=== PATIENT | male | born 1960 | race Caucasian/White ===

== ENCOUNTER 2021-06-29 10:26 | Outpatient (CLI) | payer OTHER, SELFPAY ==
--- NOTE | 2021-06-29 11:30 | NEURO_ITS ---
Impression: # Complains of numbness of hands. # Evolving Carpal Tunnel Syndrome. # Severe bilateral ulnar neuropathy across the elbows, right more than left. # Abormal needle/EMG exam. Nerve Conduction Studies Anti Sensory Summary Table Stim Site NR Peak (ms) P-T Amp (?V) Site1 Site2 Delta-P (ms) Dist (cm) Axel (m/s) Left Median Anti Sensory (2-3nd Digit) Wrist 3.8 31.4 Wrist 2-3nd Digit 3.8 14.0 37 Wrist 4.1 16.7 Wrist 2-3nd Digit 3.8 14.0 37 Right Median Anti Sensory (2-3nd Digit) Wrist 3.7 11.5 Wrist 2-3nd Digit 3.7 14.0 38 Wrist 3.7 11.1 Wrist 2-3nd Digit 3.7 14.0 38 Left Radial Anti Sensory (Base 1st Digit) Wrist 2.2 22.9 Wrist Base 1st Digit 2.2 0.0 Right Radial Anti Sensory (Base 1st Digit) Wrist 3.0 7.6 Wrist Base 1st Digit 3.0 0.0 Left Ulnar Anti Sensory (5th Digit) Wrist 2.8 7.6 Wrist 5th Digit 2.8 14.0 50 Right Ulnar Anti Sensory (5th Digit) Wrist 2.8 12.8 Wrist 5th Digit 2.8 14.0 50 Motor Summary Table Stim Site NR Onset (ms) O-P Amp (mV) Site1 Site2 Delta-0 (ms) Dist (cm) Axel (m/s) Left Median Motor (Abd Poll Brev) Wrist 3.7 6.5 Elbow Wrist 5.3 31.0 58 Elbow 9.0 5.0 Right Median Motor (Abd Poll Brev) Wrist 4.1 4.6 Elbow Wrist 6.1 29.0 48 Elbow 10.2 2.2 Left Ulnar Motor (Abd Dig Minimi) Wrist 2.7 6.0 A Elbow Wrist 6.1 30.0 49 A Elbow 8.8 4.8 B Elbow Wrist 3.9 21.0 54 B Elbow 6.6 4.4 Right Ulnar Motor (Abd Dig Minimi) Wrist 2.8 4.0 A Elbow Wrist 8.4 30.0 36 A Elbow 11.2 3.4 B Elbow Wrist 5.2 20.0 38 B Elbow 8.0 2.4 F Wave Studies NR F-Lat (ms) L-R F-Lat (ms) Left Median (Mrkrs) (Abd Poll Brev) 30.86 0.00 Right Median (Mrkrs) (Abd Poll Brev) 30.86 0.00 Left Ulnar (Mrkrs) (Abd Dig Min) 30.47 1.64 Right Ulnar (Mrkrs) (Abd Dig Min) 32.10 1.64 EMG Side Muscle Nerve Root Ins Act Fibs Amp Dur Recrt Comment Right 1stDorInt Ulnar C8-T1 Nml Nml Nml >12ms Reduced Right Ext Indicis Radial (Post Int) C7-8 Nml Nml Nml Nml Nml Right Ext Digitorum Radial (Post Int) C7-8 Nml Nml Nml Nml Nml Right BrachioRad Radial C5-6 Nml Nml Nml Nml Nml Right PronatorTeres Median C6-7 Nml Nml Nml Nml Nml Right Abd Poll Brev Median C8-T1 Nml Nml Nml Nml Nml Left 1stDorInt Ulnar C8-T1 Nml Nml Nml >12ms Reduced Left Ext Indicis Radial (Post Int) C7-8 Nml Nml Nml Nml Nml Left Ext Digitorum Radial (Post Int) C7-8 Nml Nml Nml Nml Nml Left BrachioRad Radial C5-6 Nml Nml Nml Nml Nml Left PronatorTeres Median C6-7 Nml Nml Nml Nml Nml Left Abd Poll Brev Median C8-T1 Nml Nml Nml Nml Nml Right ABD Dig Min Ulnar C8-T1 Nml Nml Nml >12ms Reduced Right Abd Poll Long Radial (Post Int) C7-8 Nml Nml Nml Nml Nml Left ABD Dig Min Ulnar C8-T1 Nml Nml Nml >12ms Reduced Left Abd Poll Long Radial (Post Int) C7-8 Nml Nml Nml Nml Nml MTDD
== END 2021-06-29 10:27 | disposition home or self-care (01) ==
PROVIDERS: Visit Provider Family Medicine
DX: G56.03 Carpal tunnel syndrome, bilateral upper limbs (principal); G56.23 Lesion of ulnar nerve, bilateral upper limbs; R94.131 Abnormal electromyogram [EMG]
CPT/HCPCS: 95886; 95911

== ENCOUNTER 2021-08-02 10:03 | Outpatient (CLI) | payer OTHER, SELFPAY ==
--- NOTE | ~2021-08-02 | XR_ITS ---
XR_CERV2-3V_CR DATE: 08/02/2021 10:22 INDICATION: Fall 3 days ago. Posterior and bilateral neck pain. TECHNIQUE: AP, open-mouth, lateral, swimmer views COMPARISON: None FINDINGS: C1 and C2 are normally aligned and the odontoid process is intact. No fracture or dislocation or locked facet or prevertebral soft tissue swelling. There is mildly severe degenerative disc disease and minimal retrolisthesis at C2-3. Moderately severe degenerative disc disease at C5-6 and C6-7. There is uncovertebral joint spurring, best demonstrated on the left at C3-4, on the right at C5-6. Stratus post sternotomy. IMPRESSION: Cervical spondylosis Reviewed, dictated and finalized at [facility]. Reviewed, dictated and finalized at [facility]. IMPRESSION: Cervical spondylosis
== END 2021-08-02 10:04 | disposition home or self-care (01) ==
LOC: ANHIMG 10:06
PROVIDERS: PCP Family Medicine; Visit Provider Nurse Practitioner Family
DX: M54.2 Cervicalgia (principal); M54.12 Radiculopathy, cervical region; M43.02 Spondylolysis, cervical region
CPT/HCPCS: 72040

== ENCOUNTER 2021-08-22 17:20 | Emergency (ER) | payer OTHER, SELFPAY ==
[2021-08-22 17:30] VITALS: BP 173/65; PULSE 78; RESP 16; TEMP 36.4; O2SAT 100
--- NOTE | 2021-08-22 17:45 | ED.GENADULT ---
HPI - General Adult General Chief complaint: Unspecified Stated complaint: HBP Time Seen by Provider: 08/22/21 17:45 Source: patient, RN notes reviewed and old records reviewed Mode of arrival: ambulatory Limitations: no limitations History of Present Illness HPI narrative: 61-year-old male presents to the [facility] with concerns over elevated blood pressure. Patient thinks that he missed a dose of his blood pressure medication this morning. Wanted his blood pressure rechecked. Had felt funny all day. Patient reports that he is feeling much better just sitting here. Had called Dr. Patel's office was told to come to the [facility] for an evaluation. Patient denies any chest pain, blurry vision or headaches currently Related Data Home Medications Medication Instructions Recorded Confirmed lisinopril 20 mg tablet 20 mg PO DAILY 05/23/21 08/22/21 metformin 1,000 mg tablet 1,000 mg PO BID 05/23/21 08/22/21 metoprolol succinate 100 mg 100 mg PO DAILY 05/23/21 08/22/21 tablet,extended release 24 hr Allergies Allergy/AdvReac Type Severity Reaction Status Date / Time acetaminophen [From [place]] AdvReac Mild hallucinati Verified 08/22/21 17:41 ons hydrocodone [From [place]] AdvReac Mild hallucinati Verified 08/22/21 17:41 ons Review of Systems Review of Systems: All systems reviewed & are unremarkable except as noted in HPI and below Constitutional: Constitutional: Reports no additional constitutional complaints, Denies chills and Denies fever(s) Eyes: Eyes: Reports no additional eye complaints ENT: Reports system reviewed and no additional complaints, except as documented Cardiovascular: Cardiovascular: Reports no additional cardiovascular complaints and Denies chest pain Respiratory: Respiratory: Reports no additional respiratory complaints, Denies cough and Denies dyspnea Gastrointestinal: Gastrointestinal: Reports no additional gastrointestinal complaints, Denies abdominal pain, Denies nausea and Denies vomiting Musculoskeletal: Musculoskeletal: Reports no additional musculoskeletal complaints Integumentary/Breasts: Skin/Breast: Reports system reviewed and no additional complaints, except as docu Neurologic: Reports system reviewed and no additional complaints, except as documented Psychiatric: Psychiatric: Reports no additional psychiatric complaints Allergic/Immunologic: Allergic/Immunologic: Reports no additional allergic/immunologic complaints PMFSH Past Medical History Medical History CAD (coronary artery disease) Diabetes mellitus Hyperlipidemia Hypertension with heart disease [place] (myocardial infarction) Surgical History Surgical History History of coronary artery stent placement S/P CABG (coronary artery bypass graft) Family History Family History Father Heart disease Hypertension Sibling Diabetes mellitus Social History Social History Smoking packs per day: 3 Smoking cigarettes per day: 60.0 Years smoked: 30 Smoking pack-years: 90.00 Smoking status: Former smoker Tobacco type: cigarettes Second hand tobacco smoke exposure: No Smoking end date: 04/08/99 Alcohol intake: never Substance use: current Substance use type: marijuana Gender identity (if verbalized by the patient): Male Sexual Orientation (if Verbalized by the Patient): Straight or Heterosexual Comments At the time of my signature, I reviewed and agree with the nursing past medical, surgical, social, and family history. There is no relevant family history pertinent to the patient complaint. Exam Const: General: healthy appearing, no acute distress and alert Nutritional Appearance: well nourished Orientation/consciousness: patient oriented x3 Limitations: no limita
[2021-08-22 18:05] VITALS: BP 160/84
== END 2021-08-22 18:10 | disposition home or self-care (01) ==
PROVIDERS: Emergency Provider Nurse Practitioner; PCP Family Medicine
DX: I10 Essential (primary) hypertension (principal); Z87.891 Personal history of nicotine dependence; I25.10 Atherosclerotic heart disease of native coronary artery without angina pectoris; E11.9 Type 2 diabetes mellitus without complications; E78.5 Hyperlipidemia, unspecified; I25.2 Old myocardial infarction; Z95.5 Presence of coronary angioplasty implant and graft; Z95.1 Presence of aortocoronary bypass graft
CPT/HCPCS: 99211; G0463

== ENCOUNTER 2021-09-24 02:24 | Emergency (ER) | payer OTHER, SELFPAY ==
[2021-09-24 02:27] VITALS: BP 150/74; PULSE 93; RESP 14; TEMP 36.8; O2SAT 100
--- NOTE | 2021-09-24 02:37 | ECG_ITS ---
Measurements Intervals [place] Rate: 87 P: 90 NM: 178 QRS: -26 QRSD: 149 T: 104 QT: 370 QTc: 447 Interpretive Statements SINUS RHYTHM LEFT BUNDLE BRANCH BLOCK [120+ ms QRS DURATION, 80+ ms Q/S IN V1/V2, 85+ ms R IN I/aVL/V5/V6] ABNORMAL ECG NO PREVIOUS ECG AVAILABLE FOR COMPARISON Electronically Signed On 09-24-2021 9:26:23 CDT by Dennis Welch M.D.
--- NOTE | 2021-09-24 02:40 | ED.GENADULT ---
HPI - General Adult General Chief complaint: Recheck/Abnormal Lab/Rx Stated complaint: high blood pressure Time Seen by Provider: 09/24/21 02:29 History of Present Illness HPI narrative: 61-year-old male presents emergency room secondary to high blood pressure. Got underlying history of hypertension has been take his medication as prescribed. Also has underlying history of coronary artery disease having undergone a stent in the past and then bypass surgery. 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 His heart rate was in the 90s blood pressures were right 170 over 70s. He states this is high for him and then he got concerned and thought he should just come to the emergency room to be checked out. Denies any chest pain or shortness of breath. He has no other symptoms at this time. Related Data Home Medications Medication Instructions Recorded Confirmed lisinopril 20 mg tablet 20 mg PO DAILY 05/23/21 08/22/21 Allergies Allergy/AdvReac Type Severity Reaction Status Date / Time acetaminophen [From [place]] AdvReac Mild hallucinati Verified 09/24/21 02:38 ons hydrocodone [From [place]] AdvReac Mild hallucinati Verified 09/24/21 02:38 ons Review of Systems Review of Systems: CONSTITUTIONAL: Denies fever, chills, or sweats. EYES: Denies visual changes, redness, or discharge. ENT: Denies rhinorrhea, congestion, sore throat, or otalgia. CARDIOVASCULAR: Denies chest pain, palpitations, or edema. RESPIRATORY: Denies cough or dyspnea. GASTROINTESTINAL: Denies abdominal pain, nausea, vomiting, or diarrhea. GENITOURINARY: Denies dysuria or hematuria. SKIN: Denies rash or itching. MUSCULOSKELETAL: Denies back pain, joint pain, or myalgia. NEUROLOGIC: Denies headache, numbness, or weakness. PSYCHIATRIC: Denies anxiety or depression. [facility] Past Medical History Medical History CAD (coronary artery disease) Diabetes mellitus Hyperlipidemia Hypertension with heart disease [place] (myocardial infarction) Surgical History Surgical History History of coronary artery stent placement S/P CABG (coronary artery bypass graft) Family History Family History Father Heart disease Hypertension Sibling Diabetes mellitus Social History Social History Smoking packs per day: 3 Smoking cigarettes per day: 60.0 Years smoked: 30 Smoking pack-years: 90.00 Smoking status: Former smoker Tobacco type: cigarettes Second hand tobacco smoke exposure: No Smoking end date: 04/08/99 Alcohol intake: never Substance use: current Substance use type: marijuana Gender identity (if verbalized by the patient): Male Sexual Orientation (if Verbalized by the Patient): Straight or Heterosexual Exam Narrative: APPEARANCE: Well appearing, no pain or distress, well-nourished. Head normocephalic and atraumatic. EYES: PERRLA/EOMI, conjunctivae very clear. NOSE: Normal with no drainage EARS:TMS clear Jeferson Jason, with good light reflex. THROAT: Pharynx clear, no exudate. NECK: Supple. No adenopathy, no masses. RESPIRATORY: Airway patent, respirations nonlabored. Clear to auscultation bilaterally, no rales, rhonchi, wheezing. CARDIOVASCULAR: Regular rate and rhythm without murmurs, rubs, or gallops. ABDOMINAL: Soft, nontender, nondistended, no hepatosplenomegaly Musculoskeletal: Moves all extremities. Strength/ROM intact, No edema, No calf tenderness. NEURO: Alert. Cranial nerves II through XII intact. Normal gait. Good coordination. Nonfocal examination. SKIN:: Warm, dry. Normal Color PSYCHIATRIC: Normal affect/mood, normal interaction Course Vital Signs Vital signs: Vital Signs Temper
[2021-09-24 02:49] VITALS: BP 138/71; PULSE 90; RESP 12; O2SAT 100
== END 2021-09-24 02:50 | disposition home or self-care (01) ==
LOC: ANHED 02:42
PROVIDERS: Emergency Provider Emergency Medicine; PCP Family Medicine
DX: I11.9 Hypertensive heart disease without heart failure (principal); I25.10 Atherosclerotic heart disease of native coronary artery without angina pectoris; E11.9 Type 2 diabetes mellitus without complications; E78.5 Hyperlipidemia, unspecified; I25.2 Old myocardial infarction; Z95.1 Presence of aortocoronary bypass graft; Z95.5 Presence of coronary angioplasty implant and graft; Z87.891 Personal history of nicotine dependence; Z79.84 Long term (current) use of oral hypoglycemic drugs
CPT/HCPCS: 93005; 99283

== ENCOUNTER 2021-11-09 13:32 | Outpatient (CLI) | payer OTHER, SELFPAY ==
[2021-11-09 14:57] LABS: Anion Gap 12 mmol/L (8-16); Blood Urea Nitrogen 13 mg/dL (9-20); Calcium 9.5 mg/dL (8.4-10.2); Carbon Dioxide 24 mmol/L (22-30); Chloride 100 mmol/L (98-107); Estimated Glomerular Filt Rate > 60; Glucose 121 mg/dL (65-110); Potassium 4.1 mmol/L (3.4-5.0); Sodium 136 mmol/L (137-145)
== END 2021-11-09 13:33 | disposition home or self-care (01) ==
LOC: ANHLAB 13:34
PROVIDERS: PCP Family Medicine; Visit Provider Anesthesiology
DX: E11.9 Type 2 diabetes mellitus without complications (principal)
CPT/HCPCS: 36415; 80048

== ENCOUNTER 2021-11-14 05:54 | Day surgery (SDC) | payer OTHER, SELFPAY ==
[2021-10-25 08:29] VITALS: BMI 28.8
--- NOTE | 2021-11-13 12:44 | WPDANESEPPF ---
Anes - Initial Pre Proc Eval Procedure: Operation Date: 11/14/21 07:30 Proposed Procedures p Right Open Carpal Tunnel Release - Jose Enrique Mcmahon MD s Right Ulnar Nerve Neuroplasty - Jose Enrique Mcmahon MD s Left Lateral Epicondyle Injection - Jose Enrique Mcmahon MD Date/Time: 11/13/21 12:44 Surgeon: Jose Enrique Mcmahon MD Pre Op Diagnosis: Right Cubital & Carpal Tunnel Syndrome, Left [place] Patient Data Age: 61 Gender: M Height: 1.73 m Weight: 86 kg Allergies Allergy/AdvReac Type Severity Reaction Status Date / Time acetaminophen [From [place]] AdvReac Mild hallucinati Verified 11/14/21 06:21 ons hydrocodone [From [place]] AdvReac Mild hallucinati Verified 11/14/21 06:21 ons Home Medications Medication Instructions Recorded Confirmed Type empagliflozin 25 mg tablet 25 mg PO DAILY #90 tabs 05/23/21 11/14/21 Rx (Jardiance) lisinopril 20 mg tablet 20 mg PO DAILY 05/23/21 11/14/21 History atorvastatin 80 mg tablet 80 mg PO QHS #90 tabs 08/14/21 11/14/21 Rx clopidogrel 75 mg tablet 75 mg PO DAILY #90 tabs 08/14/21 11/14/21 Rx metformin 1,000 mg tablet 1,000 mg PO BID #180 tabs 08/29/21 11/14/21 Rx flash glucose scanning reader #1 ea 09/05/21 Rx (FreeStyle Miguelina 14 Day [place]) flash glucose sensor (FreeStyle #1 ea 09/05/21 Rx Miguelina 14 Day Sensor kit) metoprolol succinate 100 mg 100 mg PO DAILY #90 tabs 09/19/21 11/14/21 Rx tablet,extended release 24 hr insulin detemir U-100 100 unit/mL 10 unit (0.1 mL) subcut QHS #15 mL 10/03/21 10/25/21 Rx (3 mL) subcutaneous pen (Levemir FlexTouch U-100 Insulin) insulin lispro 100 unit/mL 1 sliding scale dose subcut 10/03/21 10/25/21 Rx subcutaneous pen (Humalog KwikPen USEASDIRECTD #15 mL (U-100) Insulin) sertraline 50 mg tablet 50 mg PO DAILY #90 tabs 10/03/21 11/14/21 Rx gabapentin 100 mg capsule 200 mg PO BID #360 caps 11/03/21 11/14/21 Rx Patient hx anesthesia problems: none Family hx anesthesia problems: none Results Review: All pre-operative results and documents have been reviewed as part of the pre-operative evaluation. [facility] Past Medical History Medical History CAD (coronary artery disease) Diabetes mellitus Hyperlipidemia Hypertension with heart disease [place] (myocardial infarction) Surgical History Surgical History History of coronary artery stent placement S/P CABG (coronary artery bypass graft) Family History Family History Father Heart disease Hypertension Sibling Diabetes mellitus Social History Social History Smoking packs per day: 3 Smoking cigarettes per day: 60.0 Years smoked: 30 Smoking pack-years: 90.00 Smoking status: Never smoker Tobacco type: cigarettes Second hand tobacco smoke exposure: No Smoking end date: 04/08/99 Additional smoking assessment comments: quit 20 years Alcohol intake: never Alcohol use details: very rare Substance use: current Substance use type: marijuana Other substance usage details: daily - some smoking / some edibles Living arrangements: alone Gender identity (if verbalized by the patient): Male Sexual Orientation (if Verbalized by the Patient): Straight or Heterosexual Spiritual care concerns: No Anes - Eval Final PreProcedure Day of Procedure 11/13/21 12:44 Patient weight: overweight Heart: regular rate and rhythm Lungs: clear to auscultation Airway: Mallampati scale class II Neurological: alert and oriented Last oral intake: >/= 8 hours ASA classification: III Emergent: no Anesthetic plan: proceed Anesthesia type and monitoring: general GIVS and standard monitoring Results Review: All pre-operative results and documents have been reviewed as part of the pre-operative evaluation. Informed Co
[2021-11-14 06:15] VITALS: BP 142/73; PULSE 66; RESP 14; TEMP 36.5; O2SAT 99
[2021-11-14 06:25] VITALS: BMI 27.6
[2021-11-14] MEDS: LACTATED RINGERS 1,000 ML 30 ML IV CONT ×2 (06:40→08:22)
[2021-11-14 06:54] LABS: Glucose Point of Care 148 mg/dl (65-105)
--- NOTE | 2021-11-14 07:18 | WPDHPUPDATE1 ---
History and Physical Update Update Date/Time: 11/14/21 07:18 History and Physical has been reviewed, including an updated exam of the patient. There are NO changes in the patient's condition. Risks, benefits, and alternatives have been discussed and questions answered. Patient agrees to proceed with procedure.
[2021-11-14] MEDS: LIDO 1%/EPINEPHRINE 1:100,000 20 ML VIAL 13 ML INFILTRATE (08:03)
[2021-11-14 08:22] VITALS: BP 101/75; PULSE 65; RESP 16; TEMP 36.8; O2SAT 96
[2021-11-14] MEDS: DEXAMETHASONE SOD PHOS INJ 4 MG/ML VIAL 2 MG IV PUSH (08:30)
--- NOTE | 2021-11-14 08:39 | P.OP_ITS ---
Procedure Note - Detailed Date of Procedure 11/14/21 Pre-op Diagnosis Right Cubital & Carpal Tunnel Syndrome, Left [place] Post-op Diagnosis Same Procedure Performed Right open carpal tunnel release. Right ulnar neuroplasty at the elbow. Injection left lateral epicondyle. Surgeon Jose Enrique Mcmahon MD Traffic Workforce Representative [facility] Description of Procedure the right carpal tunnel the right cubital tunnel and the left lateral epicondyle were marked on the patient his consent in the holding area. He was rolled to the operating room where he was placed supine on the operating table. The patient was given IV sedation. The right upper extremity was prepped and draped in usual fashion. A time-out was held and confirmed. The right upper extremity was exsanguinated with an Esmarch bandage and the tourniquet inflated to 250 mmHg. The surgery was begun with an incision in the palm which was carried bluntly through the subcutaneous tissue to the palmar aponeurosis. This and the transverse retinaculum were incised with a 15. Blade opening the canal. Under 3 point retraction the ligament was divided distally and proximally to completely release it. There was no unusual anatomy noted. The skin was closed with interrupted 4-0 nylon suture. The elbow was flexed and supported on folded towels. The incision was made as marked and dissection was carried with scissors through the subcutaneous tissue to the interspace between the medial epicondyle and the olecranon. The ulnar nerve was easily identified in this location there was minimal adjacent muscle. The fascia was opened and divided Proximally mobilizing the nerve in that direction and allowing a single digit to slide alongside the nerve. The intermuscular septum did not appear to be an issue. More distally Flores's ligament was incised and the flexor muscle fascia also opened. The digit could easily be slid alongside the nerve in that position there did not appear to be distal compression. The nerve did not sublux. The skin was closed with intradermal 3-0 Monocryl at several sites and the skin closed with glue. Bulky flexible bandages were applied at both sites the tourniquet was released and the patient was discharged from the operating room stable condition. He is being discharged home with a prescription for oxycodone 5325 7. . Estimated Blood Loss 5 Drains No Packing No Pathology None sent Complications No immediate complications Condition Stable Disposition Same day
[2021-11-14 08:46] VITALS: BP 126/67; PULSE 60; RESP 16; O2SAT 97
--- NOTE | 2021-11-14 09:05 | WPDANESPN ---
Anes - Prog Note Post-Op Date/Time: 11/14/21 09:05 Cardiovascular status: normal Respiratory status: normal Airway patency: baseline Mental status: baseline Post-Op hydration status: normal Vital Signs: Last Vital Signs Temp 36.8 C 11/14/21 08:22 Pulse 60 11/14/21 08:46 Resp 16 11/14/21 08:46 BP 126/67 11/14/21 08:46 Pulse Ox 97 11/14/21 08:46 O2 Del Method Room Air 11/14/21 08:46 Pain Score (VAS): 0 11/14/21 06:51 POC Capillary Glucose 148 H Post-procedural complaints: none Patient Feedback: Patient satisfied with anesthetic care. Other Findings: Patient vital signs back to baseline. Patient denies nausea and vomiting. Patient's pain under control. Patient OK for discharge.
== END 2021-11-14 09:04 | disposition home or self-care (01) ==
PROVIDERS: PCP Family Medicine; Visit Provider Plastic Surgery
PROC: (CPT 64721; principal; 2021-11-14 07:30)
PROC: (CPT 64721; 2021-11-14 07:30)
PROC: (CPT 64721; 2021-11-14 07:30)
DX: G56.01 Carpal tunnel syndrome, right upper limb (principal); G56.21 Lesion of ulnar nerve, right upper limb
CPT/HCPCS: 64721; 64718

== ENCOUNTER 2021-11-25 20:10 | Emergency (ER) | payer OTHER, SELFPAY ==
[2021-11-25 20:15] VITALS: BP 158/69; PULSE 98; RESP 16; TEMP 36.4; O2SAT 98
[2021-11-25 20:22] LABS: Glucose Point of Care 118 mg/dl (65-105)
--- NOTE | 2021-11-25 20:56 | ED.GENADULT ---
HPI - General Adult General Chief complaint: Unspecified Stated complaint: TOOK HUMALOG INSTEAD OF LEVEMIR Time Seen by Provider: 11/25/21 20:28 Source: patient and RN notes reviewed Mode of arrival: ambulatory Limitations: no limitations History of Present Illness HPI narrative: This is a 61 year old male with history of diabetes mellitus who presents for evaluation of accidental dosing of humalog. Patient states he was trying to give himself 12 units of Levemir but he accidentally gave himself 11 units of humalog before he realized his mistake. His blood sugar was 150 before he gave himself insulin. After taking humalog his blood sugar was 89, so he drank orange juice and ate some peanut butter. His blood sugar on arrival was 118. He states he otherwise feels fine. Related Data Home Medications Medication Instructions Recorded Confirmed lisinopril 20 mg tablet 20 mg PO DAILY 05/23/21 11/14/21 Allergies Allergy/AdvReac Type Severity Reaction Status Date / Time acetaminophen [From [place]] AdvReac Mild hallucinati Verified 11/25/21 20:13 ons hydrocodone [From [place]] AdvReac Mild hallucinati Verified 11/25/21 20:13 ons Review of Systems Review of Systems: All systems reviewed & are unremarkable except as noted in HPI and below Constitutional: Constitutional: Denies chills and Denies fever(s) Cardiovascular: Cardiovascular: Denies chest pain and Denies orthopnea Respiratory: Respiratory: Denies cough and Denies hemoptysis Gastrointestinal: Gastrointestinal: Denies abdominal pain, Denies nausea and Denies vomiting PMFSH Past Medical History Medical History CAD (coronary artery disease) Diabetes mellitus Hyperlipidemia Hypertension with heart disease [place] (myocardial infarction) Surgical History Surgical History History of coronary artery stent placement S/P CABG (coronary artery bypass graft) Family History Family History Father Heart disease Hypertension Sibling Diabetes mellitus Social History Social History Smoking packs per day: 3 Smoking cigarettes per day: 60.0 Years smoked: 30 Smoking pack-years: 90.00 Smoking status: Never smoker Tobacco type: cigarettes Second hand tobacco smoke exposure: No Smoking end date: 04/08/99 Additional smoking assessment comments: quit 20 years Alcohol intake: never Alcohol use details: very rare Substance use: current Substance use type: marijuana Other substance usage details: daily - some smoking / some edibles Gender identity (if verbalized by the patient): Male Sexual Orientation (if Verbalized by the Patient): Straight or Heterosexual Spiritual care concerns: No Exam Narrative: GENERAL: Well-appearing, well-nourished, and in no acute distress. HEAD: Normocephalic, atraumatic EYES: EOMI, conjunctiva clear without discharge THROAT:Mucous membranes moist, NECK: Supple, without lymphadenopathy or mass RESPIRATORY: No respiratory distress, Airway patent, Respirations non-labored, Clear to auscultation without rales, rhonchi or wheeze HEART: Regular rate and rhythm. No murmur heard. Normal peripheral pulses. ABDOMEN: Soft, nontender, nondistended, normal active bowel sounds. No masses. No rebound or guarding, No organomegaly. EXTREMITIES: No edema, normal strength with full range of motion. SKIN: Warm, dry, normal color without rash NEURO: Alert and oriented x3. CN 2-12 grossly intact. No focal deficits. PSYCH: Normal mood and affect. Course Reevaluation(s) Reevaluation #1: PAtient's blood sugar has been going up. He is stable for discharge as insulin taken 4 hours ago. Peak effect has passed. I have discussed with patient. Date: 11/25/21 Time: 22:53 Vital Si
[2021-11-25 21:36] LABS: Glucose Point of Care 136 mg/dl (65-105)
[2021-11-25 21:49] VITALS: BP 131/59; PULSE 64; RESP 17; O2SAT 97
--- NOTE | 2021-11-25 22:52 | PC.NURSE ---
Patients bedside glucose is 144. ERP notified.
[2021-11-25 22:53] LABS: Glucose Point of Care 144 mg/dl (65-105)
[2021-11-25 22:56] VITALS: BP 119/56; PULSE 66; RESP 17; O2SAT 99
== END 2021-11-25 23:09 | disposition home or self-care (01) ==
PROVIDERS: Emergency Provider General Practice; PCP Family Medicine
DX: T38.3X1A Poisoning by insulin and oral hypoglycemic [antidiabetic] drugs, accidental (unintentional), initial encounter (principal); E11.9 Type 2 diabetes mellitus without complications; I25.10 Atherosclerotic heart disease of native coronary artery without angina pectoris; E78.5 Hyperlipidemia, unspecified; I11.9 Hypertensive heart disease without heart failure; I25.2 Old myocardial infarction; Z95.5 Presence of coronary angioplasty implant and graft; Z95.1 Presence of aortocoronary bypass graft; Z87.891 Personal history of nicotine dependence; Z79.02 Long term (current) use of antithrombotics/antiplatelets; Z79.84 Long term (current) use of oral hypoglycemic drugs; Z79.891 Long term (current) use of opiate analgesic
CPT/HCPCS: 82948; 99282

== ENCOUNTER → 2023-02-20 07:21 | Outpatient (CLI) | payer BC, SELFPAY ==
--- NOTE | ~2023-02-20 | XR_ITS ---
Left Knee Technique: AP, lateral, and sunrise views were obtained. Clinical History: Pain Findings: No fracture or dislocation is seen. Bipartite patella noted. Osseous alignment is anatomic. There is minimal spurring at the intercondylar notch and from the patella. Soft tissues are unremark able. No joint effusion is seen. Impression: Minimal degenerative spurring, as above. Bipartite patella. Reviewed, dictated and finalized at location M. 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 Bipartite patella.
--- NOTE | ~2023-02-20 | XR_ITS ---
Right Knee Technique: AP, lateral, and sunrise views were obtained. Clinical History: Pain Findings: No fracture or dislocation is seen. There is advanced degenerative change of the patellofem oral compartment with patellofemoral compartment narrowing. There is moderate spurring at the lateral joint line. Soft tissues are unremarkable. No joint effusion is seen. Impression: Advanced patellofemoral compartment degenerative change. Moderate lateral compartment degenerative change. Reviewed, dictated and finalized at location . 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 Moderate lateral compartment degenerative change.
== END ==
PROVIDERS: PCP Physician Assistant; Visit Provider Physician Assistant
DX: M25.561 Pain in right knee (principal); M25.562 Pain in left knee; Q74.1 Congenital malformation of knee; R93.6 Abnormal findings on diagnostic imaging of limbs
CPT/HCPCS: 73564

== ENCOUNTER 2023-03-03 00:41 | Emergency (ER) | payer BC, SELFPAY ==
--- NOTE | ~2023-03-03 | XR_ITS ---
EXAMINATION: XR chest 2V DATE: 03/03/2023 01:53 INDICATION: Chest tightness and nausea TECHNIQUE: PA and lateral views of the chest are obtained. COMPARISON: None available FINDINGS: The lungs are free of acute opacities. No pleural effusion or pneumothorax. The heart size is normal. Median sternotomy wires and mediastinal surgical clips are seen, likely from prior coronar y artery bypass grafting. There is moderate thoracic spondylosis. IMPRESSION: 1. No acute cardiopulmonary abnormality. Reviewed, dictated and finalized at location F. OYMENT LEGAL ASSISTANT
--- NOTE | 2023-03-03 00:43 | ECG_ITS ---
Measurements Intervals [place] Rate: 82 P: -21 NC: 140 QRS: -43 QRSD: 150 T: 111 QT: 369 QTc: 433 Interpretive Statements SINUS RHYTHM LEFT AXIS DEVIATION LEFT BUNDLE BRANCH BLOCK ABNORMAL ECG COMPARED TO ECG 09/24/2021 02:35:43 LEFT-AXIS DEVIATION NOW PRESENT Electronically Signed On 03-03-2023 9:18:48 JOB FOREMAN by Drake Chavis D.O.
[2023-03-03 01:01] VITALS: BP 170/77; PULSE 85; RESP 16; TEMP 36.4; O2SAT 100
[2023-03-03 01:24] LABS: Basophils Absolute Auto 0.1 K/mm3 (0.0-0.1); Basophils Percent Auto 0.8 % (0.2-1.2); Eosinophils Absolute Auto 0.1 K/mm3 (0-0.3); Eosinophils Percent Auto 1.8 % (0-4.4); Hematocrit 41.5 % (42.0-52.0); Hemoglobin 12.7 g/dL (14.0-18.0); Immature Granulocyte Absolute 0.02 K/mm3 (0.00-0.031); Immature Granulocyte Percent A 0.3 % (0-0.5); Lymphocytes Absolute Auto 1.92 K/mm3 (0.9-3.2); Lymphocytes Percent Auto 26.5 % (18.3-44.2); Mean Corpuscular HGB Conc 30.6 g/dl (32-36); Mean Corpuscular Hemoglobin 25.2 pg (26-34); Mean Corpuscular Volume 82.3 fl (80-100); Mean Platelet Volume 10.9 fl (7.4-10.4); Monocytes Absolute Auto 0.8 K/mm3 (0.1-0.6); Monocytes Percent Auto 10.9 % (2.6-8.5); Neutrophils Absolute Auto 4.3 K/mm3 (1.3-6.7); Neutrophils Percent Auto 59.7 % (45.5-73.1); Platelet Count Result 244 k/mm3 (150-375); Red Blood Count 5.04 M/mm3 (4.6-6.20); Red Cell Distribution Width 13.5 % (11.5-14.5); White Blood Count 7.2 K/mm3 (4.5-10.0)
[2023-03-03 01:27] LABS: Alanine Aminotransferase 45 U/L (6-50); Albumin Level 4.4 g/dL (3.5-5.1); Alkaline Phosphatase 92 U/L (38-126); Anion Gap 12 mmol/L (8-16); Aspartate Amino Transferase 47 U/L (17-59); Bilirubin,Total 0.5 mg/dL (0.2-1.3); Blood Urea Nitrogen 16 mg/dL (9-20); Calcium 9.3 mg/dL (8.4-10.2); Carbon Dioxide 22 mmol/L (22-30); Chloride 101 mmol/L (98-107); Estimated CRCL calculation 75 ml/min; Estimated Glomerular Filt Rate > 60; Glucose 119 mg/dL (65-110); Lipase 103 U/L (23-300); Potassium 3.9 mmol/L (3.4-5.0); Sodium 135 mmol/L (137-145)
[2023-03-03 01:28] LABS: INR 1.1; Prothrombin Time 14.1 Seconds (11.1-14.7)
[2023-03-03 01:38] LABS: Troponin I < 0.012 ng/mL (0.000-0.034)
--- NOTE | 2023-03-03 05:34 | PC.NURSE ---
Pt approached triage desk and states he has to go to work. Pt educated on risks of leaving before seeing provider, verbalized understanding. Pt ambulated out of ED with steady gait.
== END 2023-03-03 06:34 | disposition left against medical advice (07) ==
LOC: ANHED 05:38
PROVIDERS: Emergency Provider Emergency Medicine; PCP Physician Assistant
DX: R07.89 Other chest pain (principal)
CPT/HCPCS: 36415; 71046; 80053; 83690; 84484; 85025; 85610; 85730; 93005; 99199

== ENCOUNTER 2023-03-14 17:07 | Outpatient (CLI) | payer BC, SELFPAY ==
[2023-03-14 18:28] LABS: Influenza A QL RT-PCR Negative (Negative); Influenza B QL RT-PCR Negative (Negative); RSV RNA, RT-PCR Positive (Negative); SARS-CoV-2 RNA PCR Negative (Negative)
== END 2023-03-14 17:08 | disposition home or self-care (01) ==
LOC: ANHLAB 17:09
PROVIDERS: PCP Family Medicine; Visit Provider Physician Assistant
DX: R05.9 Cough, unspecified (principal); R50.9 Fever, unspecified
CPT/HCPCS: 87637

== ENCOUNTER → 2023-04-26 06:53 | Outpatient (CLI) | payer BC, SELFPAY ==
--- NOTE | ~2023-04-26 | XR_ITS ---
EXAMINATION: XR wrist LT min 3V DATE: 04/26/2023 07:13 INDICATION: Left wrist pain post fall onto outstretched hand TECHNIQUE: Posteroanterior, ulnar deviation, oblique, and lateral views of the left wrist were obtain ed. COMPARISON: none FINDINGS: The trapezium appears small but without evident fracture this likely reflects remodeling and osteolys is related to severe osteoarthritis at the first carpometacarpal articulation. Less severe remodeling and loss of bone stock at the palmar/ulnar base of the first metacarpal. Alignment is otherwise norm al. No acute fracture identified. Additional moderate osteoarthritis at the lunocapitate articulation of the midcarpal joint which is an atypical distribution and could be seen in the setting of early s capholunate advanced collapse (SLAC) wrist related to scapholunate ligament insufficiency. There is s ome cystic change along the ulnar margin of the scaphoid which could also be secondary to scapholunat e ligament injury. Mild osteoarthritis at the distal radioulnar and triscaphe joints. IMPRESSION: 1. No acute osseous abnormality. 2. Advanced osteoarthritis at the first carpometacarpal joint. 3. Atypical moderate osteoarthritis at the lunocapitate articulation and some cystic change at the ul barbra side of the proximal pole of the scaphoid, both findings suggesting sequela of a chronic scapholu nino ligament injury. Reviewed, dictated and finalized at location A. ANIC AND WELDER IMPRESSION: 1. No acute osseous abnormality. 2. Advanced osteoarthritis at the first carpometacarpal joint. 3. Atypical moderate osteoarthritis at the lunocapitate articulation and some c ystic change at the ulnar side of the proximal pole of the scaphoid, both findi ngs suggesting sequela of a chronic scapholunate ligament injury.
== END ==
PROVIDERS: PCP Family Medicine; Visit Provider Family Medicine
DX: M25.532 Pain in left wrist (principal)
CPT/HCPCS: 73110

== ENCOUNTER → 2023-04-30 08:42 | Outpatient (CLI) | payer BC, SELFPAY ==
--- NOTE | ~2023-04-30 | XR_ITS ---
Left foot Technique: AP, oblique, and lateral views were obtained. Clinical History: Pain Findings: No acute fracture or dislocation is seen. Osseous alignment is anatomic. Joint spaces are p reserved without erosive or degenerative change. Soft tissues are unremarkable. Impression: Unremarkable left foot radiographs. Reviewed, dictated and finalized at location . BENDER Impression: Unremarkable left foot radiographs.
== END ==
PROVIDERS: PCP Physician Assistant; Visit Provider Physician Assistant
DX: M79.672 Pain in left foot (principal)
CPT/HCPCS: 73630

== ENCOUNTER 2023-05-21 08:59 | Outpatient (CLI) | payer BC, SELFPAY ==
--- NOTE | 2023-05-21 09:25 | ECHO_ITS ---
Patient Info Name: Alejandro Gupta Age: 62 years : 1960 Gender: Male Ht: 68 in Wt: 193 lbs BSA: 2.07 m2 HR: 65 bpm BP: 120 / 66 mmHg Technical Quality: Good Exam Date: 05/21/2023 9:38 AM Exam Location: Echo Lab Patient Status: Outpatient Admit Date: 05/21/2023 Staff Ordering Physician: Drake Chavis DO Sole Assessor: Attending Provider: Drake Chavis DO Referring Physician: Partha BROWN; Exam Type: CA echo doppler color flow Study Info Indications R06.09 - Other forms of dyspnea Complete two-dimensional, color flow and Doppler transthoracic echocardiogram is performed. Summary 1. Complete two-dimensional, color flow and Doppler transthoracic echocardiogram is performed. 2. Left ventricular chamber dimension is normal. 3. Left ventricular systolic function is normal, estimated at 55-60%. 4. There is mild concentric increased left ventricular wall thickness. 5. The left ventricular diastolic function is abnormal. 6. E/e' 12 is mildly elevated. 7. Left atrial chamber dimension is mildly enlarged. 8. There is mild aortic valve sclerosis. 9. There is mild mitral valve regurgitation. 10. There is trace tricuspid valve regurgitation. 11. No pulmonary hypertension, estimated pulmonary arterial systolic pressure is 28 mmHg. Left Ventricle E/e' 12 is mildly elevated. Left ventricular chamber dimension is normal. Left ventricular systolic function is normal, estimated at 55-60%. There is mild concentric increased left ventricular wall thickness. The left ventricular diastolic function is abnormal. Right Ventricle Right ventricular chamber dimension is normal. Right ventricular systolic function is normal. Left Atria Left atrial chamber dimension is mildly enlarged. Right Atria Right atrial chamber dimension is normal. Aortic Valve The aortic valve is trileaflet. There is mild aortic valve sclerosis. There is no aortic valve stenosis. There is no aortic valve regurgitation. Pulmonic Valve There is no pulmonic regurgitation. Mitral Valve There is no mitral valve stenosis. There is mild mitral valve regurgitation. Tricuspid Valve There is trace tricuspid valve regurgitation. No pulmonary hypertension, estimated pulmonary arterial systolic pressure is 28 mmHg. Pericardium/Pleural There is no pericardial effusion. Inferior Vena Cava Normal inferior vena cava with >50% collapse upon inspiration consistent with normal right atrial pressure, 5 mmHg. Aorta The aortic root size at the sinus of Valsalva is normal. Left Ventricular Outflow Tract Name Value Normal LVOT 2D LVOT Diameter 2.0 cm LVOT Doppler LVOT Peak Gradient 4 mmHg LVOT Mean Gradient 2 mmHg LVOT VTI 21 cm LVOT VTI/AV VTI Ratio 0.6 LVOT Stroke Volume 63 ml LVOT CO 3.7 l/min LVOT CI 1.8 l/min/m2 Pulmonic Valve Name Value Normal
== END 2023-05-21 09:00 | disposition home or self-care (01) ==
LOC: ANHCARD 09:01
PROVIDERS: PCP Physician Assistant; Visit Provider Internal Medicine Cardiovascular Disease
DX: R93.1 Abnormal findings on diagnostic imaging of heart and coronary circulation (principal); R06.09 Other forms of dyspnea; I35.8 Other nonrheumatic aortic valve disorders; I34.0 Nonrheumatic mitral (valve) insufficiency; I07.1 Rheumatic tricuspid insufficiency
CPT/HCPCS: 93306

== ENCOUNTER 2023-06-03 13:59 | Outpatient (CLI) | payer BC, SELFPAY ==
--- NOTE | ~2023-06-03 | US_ITS ---
US art doppler w press LE BI INDICATION: Peripheral vascular disease TECHNIQUE: Segmental pressures and plethysmographic and Doppler waveforms of the brachial and lower e xtremity arteries were obtained. COMPARISON: None. FINDINGS: Right and left brachial artery pressures of 132 mm Hg and 121 mm Hg, respectively, are concordant (no rmal difference <= 30 mmHg). The right ankle-brachial index (SANTY) is 1.17 (normal >= 0.9-1.0). The right great toe-brachial index (TBI) is 0.45 (normal >= 0.60). The left SANTY is 1.14. The left TBI is 0.41. There is biphasic and triphasic flow in the lower extremity arteries bilaterally. IMPRESSION: 1. Diminished bilateral toe brachial indices consistent with peripheral arterial disease. Reviewed, dictated and finalized at location A. O GAMES MECHANIC IMPRESSION: 1. Diminished bilateral toe brachial indices consistent with peripheral arteria l disease.
== END 2023-06-03 14:00 | disposition home or self-care (01) ==
LOC: ANHIMG 14:00
PROVIDERS: PCP Physician Assistant; Visit Provider Internal Medicine Cardiovascular Disease
DX: I73.9 Peripheral vascular disease, unspecified (principal)
CPT/HCPCS: 93923

== ENCOUNTER 2023-07-16 08:40 | Outpatient (CLI) | payer BC, SELFPAY ==
--- NOTE | 2023-07-16 11:00 | NEURO_ITS ---
Impression: # Complains of increasing numbness/weakness of hands. Not diabetic. History of right Carpal Tunnel release. # Bilateral ulnar neuropathy across the elbows. # Right median proximal slowing; Question Pronator Teres Syndrome. # Subtle Carpal Tunnel Syndrome. # Needle/EMG exam neurogenic in left Triceps raising the possibility of cervical pathology as well; C-spine MRI recommended. Nerve Conduction Studies Anti Sensory Summary Table Stim Site NR Peak (ms) P-T Amp (?V) Site1 Site2 Delta-P (ms) Dist (cm) Axel (m/s) Left Median Anti Sensory (2-3nd Digit) Wrist 3.7 30.3 Wrist 2-3nd Digit 3.7 14.0 38 Wrist 3.9 19.0 Wrist 2-3nd Digit 3.7 14.0 38 Right Median Anti Sensory (2-3nd Digit) Wrist 3.5 27.7 Wrist 2-3nd Digit 3.5 14.0 40 Wrist 3.6 32.8 Wrist 2-3nd Digit 3.5 14.0 40 Left Radial Anti Sensory (Base 1st Digit) Wrist 2.2 11.9 Wrist Base 1st Digit 2.2 0.0 Right Radial Anti Sensory (Base 1st Digit) Wrist 2.6 10.1 Wrist Base 1st Digit 2.6 0.0 Left Ulnar Anti Sensory (5th Digit) Wrist 2.1 12.3 Wrist 5th Digit 2.1 14.0 67 Right Ulnar Anti Sensory (5th Digit) Wrist 2.4 47.0 Wrist 5th Digit 2.4 14.0 58 Motor Summary Table Stim Site NR Onset (ms) O-P Amp (mV) Site1 Site2 Delta-0 (ms) Dist (cm) Axel (m/s) Left Median Motor (Abd Poll Brev) Wrist 3.8 3.9 Elbow Wrist 5.0 29.0 58 Elbow 8.8 4.1 Right Median Motor (Abd Poll Brev) Wrist 4.0 4.8 Elbow Wrist 5.9 29.0 49 Elbow 9.9 3.9 Left Ulnar Motor (Abd Dig Minimi) Wrist 2.5 5.5 A Elbow Wrist 7.1 32.0 45 A Elbow 9.6 4.5 B Elbow Wrist 4.1 22.0 54 B Elbow 6.6 3.5 Right Ulnar Motor (Abd Dig Minimi) Wrist 2.6 6.7 A Elbow Wrist 7.2 32.0 44 A Elbow 9.8 5.7 B Elbow Wrist 3.7 21.0 57 B Elbow 6.3 5.3 F Wave Studies NR F-Lat (ms) L-R F-Lat (ms) Left Median (Mrkrs) (Abd Poll Brev) 28.05 2.67 Right Median (Mrkrs) (Abd Poll Brev) 30.73 2.67 Left Ulnar (Mrkrs) (Abd Dig Min) 31.65 0.66 Right Ulnar (Mrkrs) (Abd Dig Min) 31.00 0.66 EMG Side Muscle Nerve Root Ins Act Fibs Amp Dur Recrt Comment Right 1stDorInt Ulnar C8-T1 Nml Nml Nml >12ms +2 Right Ext Indicis Radial (Post Int) C7-8 Nml Nml Nml Nml Nml Right Ext Digitorum Radial (Post Int) C7-8 Nml Nml Nml Nml Nml Right BrachioRad Radial C5-6 Nml Nml Nml Nml Nml Right PronatorTeres Median C6-7 Nml Nml Incr >12ms +1 Right Abd Poll Brev Median C8-T1 Nml Nml Nml Nml Nml Right ABD Dig Min Ulnar C8-T1 Nml Nml Nml Nml Nml Left 1stDorInt Ulnar C8-T1 Nml Nml Nml >12ms +2 Left Ext Indicis Radial (Post Int) C7-8 Nml Nml Nml Nml Nml Left Ext Digitorum Radial (Post Int) C7-8 Nml Nml Nml Nml Nml Left BrachioRad Radial C5-6 Nml Nml Nml Nml Nml Left PronatorTeres Median C6-7 Nml Nml Nml Nml Nml Left Abd Poll Brev Median C8-T1 Nml Nml Nml Nml Nml Left ABD Dig Min Ulnar C8-T1 Nml Nml Nml Nml Nml Right Biceps Musculocut C5-6 Nml Nml Nml Nml Nml Right Triceps Radial C6-7-8 Nml Nml Nml Nml Nml Right Deltoid Axillary C5-6 Nml Nml Nml Nml Nml Left Biceps Musculocut C5-6 Nml Nml Nml Nml Nml Left Triceps Radial C6-7-8 Nml Nml Incr >12ms +2 Left Deltoid Axillary C5-6 Nml Nml Nml >12ms +2 MTDD
== END 2023-07-16 08:41 | disposition home or self-care (01) ==
LOC: ANHNEURO 08:42
PROVIDERS: PCP Family Medicine; Visit Provider Family Medicine
DX: G56.23 Lesion of ulnar nerve, bilateral upper limbs (principal); G56.03 Carpal tunnel syndrome, bilateral upper limbs; M18.12 Unilateral primary osteoarthritis of first carpometacarpal joint, left hand
CPT/HCPCS: 95886; 95911

== ENCOUNTER 2023-11-27 10:49 | Outpatient (CLI) | payer BC, SELFPAY ==
--- NOTE | ~2023-11-27 | XR_ITS ---
XR hand RT min 3V Ordering provider: Uriel Petersen MD History: . G56.03 - Carpal tunnel syndrome, bilateral upper limbs . Comparison: None. FINDINGS: BONES: No acute fracture or dislocation. JOINT SPACES: Osteoarthritic changes of the first carpometacarpal joint with loss of volume of the tr apezium. Narrowing of the distal interphalangeal joints in the second and third finger. Narrowing of the intercarpal joints. SOFT TISSUES: Normal. IMPRESSION: No acute osseous abnormality right hand. Polyarticular osteoarthritic changes. Reviewed, dictated and finalized at location A.
== END 2023-11-27 10:50 | disposition home or self-care (01) ==
LOC: ANHLAB 10:53 → ANHIMG 10:56
PROVIDERS: PCP Family Medicine; Visit Provider Plastic Surgery
DX: G56.03 Carpal tunnel syndrome, bilateral upper limbs (principal); M19.041 Primary osteoarthritis, right hand
CPT/HCPCS: 73130

== ENCOUNTER 2024-05-07 08:07 | Outpatient (CLI) | payer MEDICARE, SELFPAY ==
--- OUTSIDE RECORDS SUMMARY | 2024-05-07 08:17 | XMS_ITS | Clinical Summary ---
Author Organization [facility] Address [facility] [place] [address] [place] [address] Care Team Providers Care Vendor Management Specialist Name Role Phone Yaakov Lee DO Primary Care Provider [phone] Allergies No known active allergies Medications HYDROcodone-acet aminophen 5-325 MG tabletIndication s:Acute Pain < 7 Day Supply Take 1 tablet by mouth every 6 (six) hours as needed for Pain. Indications : Acute Pain < 7 Day Supply 10 tablet 04/13/2020 Active Active Problems No known active problems Immunizations Name Administration Dates Next Due Tdap (Boostrix) 04/12/2020 Social History Tobacco Use Types Packs/Day Years Used Date Smoking Tobacco: Never Assessed Sex and Gender Information Value Date Recorded Sex Assigned at Not on file Legal Sex Male 9:23 PM SAP [employer]UR[employer] Gender Identity Not on file Sexual Orientation Not on file Last Filed Vital Signs Vital Sign Reading Time Taken Comments Blood Pressure 152/77 04/12/2020 10:32 PM [employer] Pulse 90 04/12/2020 10:32 PM [employer] Temperature 36.8 ??C (98.3 ??F) 04/12/2020 10:[address] Respiratory Rate 10 04/12/2020 10:32 PM [employer] Oxygen Saturation 100% 04/12/2020 10:32 PM [employer] Inhaled Oxygen Concentration - - Weight 91.9 kg (202 lb 9.6 oz) 04/12/2020 10:32 PM [employer] Height 172.7 cm (5' 8 ) 04/12/2020 10:32 PM [employer] Body Mass Index 30.81 04/12/2020 10:32 PM [employer] Plan of Treatment Health Maintenance Due Date Last Done Comments Colorectal Cancer Screening Colonoscopy (10 Years) 1960 Hepatitis C 1976 Zoster Vaccines (1 of 2) 2008 Pneumococcal Vaccine: 65+ Ye ars (2 of 2 - PPSV23 or PCV20) 08/01/2023 11/01/2016 COVID-19 Vaccine (1 - 2023-2 5 season) 2023 Influenza Adult (#1) 2024 01/12/2020 DTaP, Tdap and Td Vaccines ( 2 - Td or Tdap) 04/12/2030 04/12/2020 RSV Immunization or 60+ Years (1 - 1-dose 75+ series) 2033 Pneumococcal Vaccine: Pediat rics (0 to 5 Years) and At-Risk Patients (6 to 64 Years) Aged Out 11/01/2016 No longer eligi ble based on patient's age to complete this topic Meningococcal B Vaccine Aged Out No l onger eligible based on patient's age to complete this topic Meningococcal Vaccine Aged Out No bonnie lynne eligible based on patient's age to complete this topic RSV Immunizations Under 20 Months Aged Out No longer eligible based on patient's age to complete this topic Insurance [employer] Care Teams Vendor Management Specialist Relationship Specialty Start Date End Date Yaakov Lee DO [address] [place] [address] PCP - General FAMILY PRACTICE 03/04/19
[2024-05-07 08:39] LABS: Alanine Aminotransferase 38 U/L (6-50); Albumin Level 4.3 g/dL (3.5-5.1); Alkaline Phosphatase 85 U/L (38-126); Anion Gap 12 mmol/L (4-12); Aspartate Amino Transferase 37 U/L (17-59); Bilirubin,Total 0.6 mg/dL (0.2-1.3); Blood Urea Nitrogen 13 mg/dL (9-20); Calcium 9.5 mg/dL (8.4-10.2); Carbon Dioxide 22 mmol/L (22-30); Chloride 104 mmol/L (98-107); Estimated Glomerular Filt Rate > 60; Glucose 184 mg/dL (65-110); Potassium 4.5 mmol/L (3.4-5.0); Sodium 138 mmol/L (137-145)
[2024-05-07 09:36] LABS: Hemoglobin A1C 7.5 % (<5.7)
== END 2024-05-07 08:08 | disposition home or self-care (01) ==
PROVIDERS: PCP Family Medicine; Visit Provider Physician Assistant Medical
DX: E11.9 Type 2 diabetes mellitus without complications (principal); I10 Essential (primary) hypertension
CPT/HCPCS: 36415; 80053; 83036

== ENCOUNTER 2024-06-24 06:56 | Outpatient (CLI) | payer MEDICARE, SELFPAY ==
--- NOTE | ~2024-06-24 | XR_ITS ---
XR cervical spine 4-5V Ordering provider: Zehn Spencer MD History: . M47.812 - Spondylosis without myelopathy or radiculopathy... . Comparison: None. FINDINGS: VERTEBRAL BODIES: Normal height and alignment. No visible fracture or subluxation. The dens is intact . DISK SPACES: Narrowing of the disc C3-C3, C5-C6 and C6-C7. Multilevel facet joint disease. Multilevel uncovertebral joint osteoarthritic changes. PARASPINOUS SOFT TISSUES: No prevertebral soft tissue swelling. IMPRESSION: No acute osseous abnormality cervical spine. Multilevel degenerative disc disease. Reviewed, dictated and finalized at location A.
--- NOTE | ~2024-06-24 | XR_ITS ---
XR sacroiliac joints min 3V Ordering provider: Zhen Spencer MD History: . M46.1 - Sacroiliitis, not elsewhere classified . Comparison: None. FINDINGS: BONES: No acute fracture or dislocation. Lucency seen in the right femoral neck suggestive of pits pit. JOINTS: The bilateral sacroiliac joint spaces appear well maintained. No bony fusion of the sacroilia c joints or bony erosions. SOFT TISSUES: Unremarkable. IMPRESSION: NO ACUTE OSSEOUS ABNORMALITY. NORMAL SACROILIAC JOINTS. Reviewed, dictated and finalized at location A.
--- NOTE | ~2024-06-24 | XR_ITS ---
3 VIEWS LUMBAR SPINE Ordering provider: Zhen Spencer MD History: . M96.1 - Postlaminectomy syndrome, not elsewhere classified . Comparison: None. FINDINGS: VERTEBRAL BODIES: No visible fracture or subluxation. Chronic anterior loss of height of T11. DISK SPACES: Slight Narrowing of the disc L3-4. Facet joint disease at the level of L4-5 and L5-S1. SOFT TISSUES: Atherosclerotic changes of the left hip. IMPRESSION: No acute osseous abnormality lumbar spine. Reviewed, dictated and finalized at location A.
--- NOTE | ~2024-06-24 | XR_ITS ---
AP view of the pelvis and AP and lateral views of the bilateral hips Clinical history: Pain Findings: No acute fracture or dislocation is seen. Osseous alignment is anatomic. Bilateral hip and SI joint spaces are preserved. Soft tissues are unremarkable. Impression: No significant abnormality is seen. Reviewed, dictated and finalized at location . Impression: No significant abnormality is seen.
--- OUTSIDE RECORDS SUMMARY | 2024-06-24 06:59 | XMS_ITS | Clinical Summary ---
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 Gender Identity Not on file Sexual Orientation Not on file Last Filed Vital Signs Vital Sign Reading Time Taken Comments Blood Pressure 152/77 04/12/2020 10:32 PM DIRECTOR OF DATABASE MARKETING Pulse 90 04/12/2020 10:32 PM DIRECTOR OF DATABASE MARKETING Temperature 36.8 C (98.3 F) 04/12/2020 10:32 PM DIRECTOR OF DATABASE MARKETING Respiratory Rate 10 04/12/2020 10:32 PM DIRECTOR OF DATABASE MARKETING Oxygen Saturation 100% 04/12/2020 10:32 PM DIRECTOR OF DATABASE MARKETING Inhaled Oxygen Concentration - - Weight 91.9 kg (202 lb 9.6 oz) 04/12/2020 10:32 PM DIRECTOR OF DATABASE MARKETING Height 172.7 cm (5' 8 ) 04/12/2020 10:32 PM DIRECTOR OF DATABASE MARKETING Body Mass Index 30.81 04/12/2020 10:32 PM DIRECTOR OF DATABASE MARKETING Plan of Treatment Health Maintenance Due Date [...] this topic Insurance [employer] Care Teams Rn Medicare Relationship Specialty Start Date End Date Yaakov Lee DO [address] [place] [address] PCP - General FAMILY PRACTICE 03/04/19
== END 2024-06-24 06:57 | disposition home or self-care (01) ==
PROVIDERS: PCP Family Medicine; Visit Provider Anesthesiology Pain Medicine
DX: M50.31 Other cervical disc degeneration, high cervical region (principal); M50.322 Other cervical disc degeneration at C5-C6 level; M50.323 Other cervical disc degeneration at C6-C7 level; M47.812 Spondylosis without myelopathy or radiculopathy, cervical region; M46.1 Sacroiliitis, not elsewhere classified; M96.1 Postlaminectomy syndrome, not elsewhere classified; M25.559 Pain in unspecified hip; M15.9 Polyosteoarthritis, unspecified
CPT/HCPCS: 72050; 72114; 72202; 73521

== ENCOUNTER 2024-07-04 07:19 | Outpatient (CLI) | payer MEDICARE, SELFPAY ==
--- NOTE | ~2024-07-04 | MR_ITS ---
MRI of the lumbar spine Clinical History: Back pain Technique: Axial T2-weighted images, and sagittal T1-weighted, T2-weighted, and T2 fat-sat images wer e acquired. Findings: There is no fracture or subluxation of the lumbar spine. Vertebral bodies maintain normal h eight and alignment. No bone marrow signal abnormality seen. At L1-L2, there is diffuse disc bulge and mild facet arthropathy. There is moderate central canal shelby nosis/thecal sac compression. There is minimal bilateral neural foraminal narrowing. At L2-L3, there is disc bulge and severe facet arthropathy, resulting in severe spinal canal stenosis /thecal sac compression. There is moderate bilateral neural foraminal narrowing. At L3-L4, there is diffuse disc bulge with severe facet arthropathy, resulting in moderate to severe spinal canal stenosis/thecal sac compression. There is severe right neural foraminal narrowing. Left neural foramen preserved. At L4-L5, there is diffuse disc bulge with severe facet arthropathy. There is small right-sided synov ial cyst measuring 5 mm. There is moderate spinal canal stenosis/thecal sac compression. There is mod erate right neural foraminal narrowing. Left neural foramen is minimally narrowed. At L5-S1, there is mild disc bulge with moderate facet arthropathy. No central canal stenosis. There is mild to moderate right neural foraminal narrowing. There is minimal left neural foraminal narrowin g. Paravertebral soft tissues are otherwise unremarkable. Impression: Severe degenerative spondylosis, as detailed above. Reviewed, dictated and finalized at [facility]. Impression: Severe degenerative spondylosis, as detailed above.
== END 2024-07-04 07:20 | disposition home or self-care (01) ==
LOC: MICIMG 07:20
PROVIDERS: PCP Family Medicine; Visit Provider Anesthesiology Pain Medicine
DX: M47.22 Other spondylosis with radiculopathy, cervical region (principal); M25.559 Pain in unspecified hip
CPT/HCPCS: 72148

== ENCOUNTER 2024-07-21 07:13 | Outpatient (CLI) | payer MEDICARE, SELFPAY ==
--- NOTE | ~2024-07-21 | MR_ITS ---
MRI of the cervical spine Clinical History: Radiculopathy Technique: Axial T2-weighted and gradient images, and sagittal T1-weighted, T2-weighted, and STIR joe ges were acquired. Findings: No fracture or subluxation of the cervical spine. Vertebral bodies maintain normal height a nd alignment. No suspicious bone marrow signal abnormality seen. At C2-C3, there is advanced degenerative disc narrowing. There is minimal disc ossify complex and mil d facet arthropathy. There is no mis canal stenosis, cord compression, or definite neural foraminal narrowing. At C3-C4, there is minimal disc osteophyte complex. No mis canal stenosis or cord compression. Ther e is bilateral facet arthropathy with left neural foraminal narrowing. No definite right neural yovani inal narrowing. At C4-C5, there is minimal disc osteophyte complex. No mis canal stenosis or cord compression. Prob able mild bilateral neural foraminal narrowing. At C5-C6, there is disc osteophyte complex without definite canal stenosis or cord compression. Proba ble bilateral neural foraminal narrowing, right worse than left. At C6-C7, there is minimal disc bulge. No canal stenosis or cord compression. Probable bilateral neur al foraminal narrowing. No abnormal signal seen in the spinal cord. Paravertebral soft tissues are unremarkable. Impression: Moderate degenerative spondylosis overall, as detailed above. Reviewed, dictated and finalized at [facility]. Impression: Moderate degenerative spondylosis overall, as detailed above.
== END 2024-07-21 07:14 | disposition home or self-care (01) ==
PROVIDERS: PCP Family Medicine; Visit Provider Anesthesiology Pain Medicine
DX: M47.812 Spondylosis without myelopathy or radiculopathy, cervical region (principal)
CPT/HCPCS: 72141

== ENCOUNTER 2024-11-06 06:32 | Outpatient (CLI) | payer MEDICARE, SELFPAY ==
--- NOTE | ~2024-11-06 | MR_ITS ---
EXAMINATION: MR brain/brain stem wo/w con DATE: 11/06/2024 07:52 INDICATION: Amnesia. Headaches. TECHNIQUE: Magnetic resonance imaging (MRI) of the brain and brainstem was performed without and with 17 mL Multihance intravenous contrast. Sequences included sagittal and axial T1-weighted SE, axial d iffusion-weighted FS SE, axial 3D SWAN, axial T2-weighted FLAIR, and axial T2-weighted FSE. Postcontr ast axial and coronal T1-weighted SE was obtained. Apparent diffusion coefficient (ADC) maps were cre ated. COMPARISON: None. FINDINGS: There are no areas of restricted diffusion to suggest acute infarction. No intracranial hemorrhage or abnormal intracranial mass lesion. There are scattered areas of nonspecific increased T2-weighted si gnal intensity in the cerebral white matter, predominantly involving the deep and periventricular whi te matter. There are no intraparenchymal signal abnormalities seen on the other pulse sequences. The ventricles are symmetric and normal in size. There are no abnormal extra-axial fluid collections. Naveen w voids are seen in the cerebral arteries on the T2-weighted sequences consistent with their expected patency. Moderate mucosal thickening the bilateral ethmoid sinuses. Visualized orbits and soft tissu es are unremarkable. There are no areas of abnormal enhancement on the post contrast images. IMPRESSION: 1. No acute intracranial process or abnormally enhancing brain lesions. 2. Mild scattered nonspecific cerebral white matter T2 hyperintensity which within normal limits for age and likely sequela of chronic small vessel ischemic disease. Reviewed, dictated and finalized at location A. IMPRESSION: 1. No acute intracranial process or abnormally enhancing brain lesions. 2. Mild scattered nonspecific cerebral white matter T2 hyperintensity which wit hin normal limits for age and likely sequela of chronic small vessel ischemic d isease.
--- OUTSIDE RECORDS SUMMARY | 2024-11-06 06:36 | XMS_ITS | Clinical Summary ---
Author Organization [facility] Address [address] [place] [address] Care Team Providers Care Shellfish Weigher Name Role Phone Yaakov Lee DO Primary Care Provider [phone] Allergies No known active allergies Medications HYDROcodone-acet aminophen 5-325 MG tabletIndication s:Acute Pain < 7 Day Supply Take 1 tablet by mouth every 6 (six) hours as needed for Pain. Indications : Acute Pain < 7 Day Supply 10 tablet 04/13/2020 Active Active Problems No known active problems Immunizations Immunization Administration Dates Next Due Tdap (Boostrix) 04/12/2020 Social History Tobacco Use Types Packs/Day Years Used Date Smoking Tobacco: Never Assessed Sex and Gender Information Value Date Recorded Sex Assigned at Not on file Legal Sex Male 9:23 PM CONTINUOUS [employer]ARY [employer]UM TANNER Gender Identity Not on file Sexual Orientation Not on file Last Filed Vital Signs Vital Sign Reading Time Taken Comments Blood Pressure 152/77 04/12/2020 10:32 PM CONTINUOUS PROCESS ROTARY DRUM TANNER Pulse 90 04/12/2020 10:32 PM CONTINUOUS PROCESS R[employer]ARY DRUM TANNER Temperature 36.8 C (98.3 F) 04/12/2020 10:32 PM CONTINUOUS PROCESS R[employer]ARY DRUM TANNER Respiratory Rate 10 04/12/2020 10:32 PM CONTINUOUS PROCESS ROTARY DRUM TANNER Oxygen Saturation 100% 04/12/2020 10:32 PM CONTINUOUS PROCESS ROTARY DRUM TANNER Inhaled Oxygen Concentration - - Weight 91.9 kg (202 lb 9.6 oz) 04/12/2020 10:32 PM CONTINUOUS PROCESS ROTARY DRUM TANNER Height 172.7 cm (5' 8) 04/12/2020 10:32 PM CONTINUOUS PROCESS R[employer]ARY [employer] TANNER Body Mass Index 30.81 04/12/2020 10:32 PM CONTINUOUS PROCESS ROTARY DRUM TANNER Plan of Treatment Health Maintenance Due Date Last Done Comments Colorectal Cancer Screening Colonoscopy (10 Years) 1960 Hepatitis C 1976 Zoster Vaccines (1 of 2) 2008 Pneumococcal Vaccine: 50+ Ye ars (2 of 2 - PPSV23) 11/01/2017 11/01/2016 COVID-19 Vaccine (1 - 2023-2 5 season) 2023 DTaP, Tdap and Td Vaccines ( 2 - Td or Tdap) 04/12/2030 04/12/2020 RSV Immunization or 60+ Years (1 - 1-dose 75+ series) 2033 Meningococcal B Vaccine Aged Out No l onger eligible based on patient's age to complete this topic Meningococcal Vaccine Aged Out No bonnie lynne eligible based on patient's age to complete this topic RSV Immunizations Under 20 Months Aged Out No longer eligible based on patient's age to complete this topic Insurance [employer] Care Teams Shellfish Weigher Relationship Specialty Start Date End Date Yaakov Lee DO PCP - General FAMILY PRACTICE 03/04/19
== END 2024-11-06 06:33 | disposition home or self-care (01) ==
PROVIDERS: PCP Family Medicine; Visit Provider Physician Assistant
DX: R41.3 Other amnesia (principal); R90.82 White matter disease, unspecified
CPT/HCPCS: 70553; A9577

== ENCOUNTER 2024-11-20 08:25 | Outpatient (CLI) | payer MEDICARE, SELFPAY ==
--- OUTSIDE RECORDS SUMMARY | 2024-11-20 08:30 | XMS_ITS | Clinical Summary ---
Author Organization [facility] Address [address] [place] [address] Care Team Providers Care Plastic Surgery Specialist Name Role Phone Yaakov Lee DO Primary Care Provider [phone] Allergies No known active allergies Medications HYDROcodone-acet [...] on file Legal Sex Male 9:23 PM [employer] Gender Identity Not on file Sexual Orientation Not on file Last Filed Vital Signs Vital Sign Reading Time Taken Comments Blood Pressure 152/77 04/12/2020 10:32 PM [employer] Pulse 90 04/12/2020 10:32 PM [employer] Temperature 36.8 C (98.3 F) 04/12/2020 10:32 PM [employer] AIDE Respiratory Rate 10 04/12/2020 10:32 PM [employer]IDE Oxygen Saturation 100% 04/12/2020 10:32 PM [employer] AIDE Inhaled Oxygen Concentration - - Weight 91.9 kg (202 lb 9.6 oz) 04/12/2020 10:32 PM [employer] AIDE Height 172.7 cm (5' 8) 04/12/2020 10:32 PM [employer] AIDE Body Mass Index 30.81 04/12/2020 10:32 PM [employer] A[employer] Plan of Treatment Health Maintenance Due Date [...] this topic Insurance [employer] Care Teams Plastic Surgery Specialist Relationship Specialty Start Date End Date Yaakov Lee DO PCP - General FAMILY PRACTICE 03/04/19
[2024-11-20 09:04] LABS: Hematocrit 47.8 % (42.0-52.0); Hemoglobin 15.7 g/dL (14.0-18.0); Immature Granulocyte Percent A 0.4 % (0-0.5); Lymphocytes Absolute Auto 1.38 K/mm3 (0.9-3.2); Mean Corpuscular HGB Conc 32.8 g/dl (32-36); Mean Corpuscular Hemoglobin 28.3 pg (26-34); Mean Corpuscular Volume 86.3 fl (80-100); Nucleated Red Blood Cells Absolute Auto 0.000 K/mm3 (0.0-0.012); Nucleated Red Blood Cells Perc 0.0 % (0.0-0.2); Platelet Count Result 248 k/mm3 (150-375); Red Blood Count 5.54 M/mm3 (4.6-6.20); White Blood Count 11.4 K/mm3 (4.5-10.0)
[2024-11-26 22:08] LABS: Free Testosterone (Direct) 4.6 pg/mL (6.6-18.1)
== END 2024-11-20 08:26 | disposition home or self-care (01) ==
PROVIDERS: PCP Family Medicine; Visit Provider Physician Assistant
DX: D75.1 Secondary polycythemia (principal); R53.83 Other fatigue
CPT/HCPCS: 36415; 84402; 84403; 85025

== ENCOUNTER 2024-11-25 07:00 | Outpatient (CLI) | payer MEDICARE, SELFPAY ==
--- NOTE | ~2024-11-25 | NM_ITS ---
EXAMINATION: NM jenna stress w perfusion DATE: 11/25/2024 10:00 INDICATION: Encounter for preprocedural cardiovascular examination TECHNIQUE: Rest images were obtained following intravenous administration of 11.4 mCi Tc99m tetrofosmin (Myoview). The patient was infused intravenously with Lexiscan (Regadenoson). Then, 34 mCi Tc99m tetrofosmin (Myoview) was administered intravenously, and stress images were obtained, initially in the supine position with repeat post stress images also obtained in the prone position. Data was reconstructed into short axis and horizontal and vertical long axis SPECT images. Gated SPECT images were also obtained. COMPARISON: None. FINDINGS: There is no definite reversible or fixed perfusion abnormality on the post stress imaging obtained in the prone position to suggest ischemia or infarction. There is normal left ventricular chamber size, wall motion and ejection fraction. Left ventricular ejection fraction measures 58%. IMPRESSION: 1. Normal myocardial perfusion at rest and during stress. 2. Left ventricular ejection fraction measuring 58%. Reviewed, dictated and finalized at location A.
--- NOTE | 2024-11-25 07:08 | EST_ITS ---
Patient Info Name: Alejandro Gupta Age: 64 years : 1960 Gender: Male Ht: 68 in Wt: 184 lbs BSA: 2.02 m2 HR: 54 bpm BP: 119 / 88 mmHg Exam Date: 11/25/2024 7:08 AM Patient Status: O Admit Date: 11/25/2024 Exam Type: CA stress jenna w NM A regadenoson stress test was performed. Staff Referring Physician: Drake Chavis DO Attending Provider: Drake Chavis DO Exercise Technologist: Maria De Jesus Marquez Exercise Physician: Drake Chavis DO Summary 1. 1. Inconclusive lexiscan stress test for ischemic ST changes by ECG criteria due to baseline LBBB. 2. 2. Stable hemodynamics throughout the test. 3. 3. Nuclear scan to follow and will be reported separately. Please correlate with it. 4. 4. Patient informed of the above results. Protocol: Lexiscan Stress ECG Details Stage: REST Duration (min): 3 min : 48 sec HR (bpm): 54 SBP (mmHg): 119 DBP (mmHg): 88 Stage: REST Duration (min): 9 min : 7 sec HR (bpm): 66 SBP (mmHg): 119 DBP (mmHg): 88 Stage: STAGE 1 Duration (min): 0 min : 59 sec HR (bpm): 78 SBP (mmHg): 164 DBP (mmHg): 100 Stage: RECOVERY Duration (min): 1 min : 0 sec HR (bpm): 86 SBP (mmHg): 164 DBP (mmHg): 100 Stage: RECOVERY Duration (min): 2 min : 0 sec HR (bpm): 75 SBP (mmHg): 164 DBP (mmHg): 100 Stage: RECOVERY Duration (min): 3 min : 0 sec HR (bpm): 72 SBP (mmHg): 148 DBP (mmHg): 90 Stage: RECOVERY Duration (min): 4 min : 0 sec HR (bpm): 69 SBP (mmHg): 148 DBP (mmHg): 90 Stage: RECOVERY Duration (min): 5 min : 0 sec HR (bpm): 70 SBP (mmHg): 122 DBP (mmHg): 90 Stage: RECOVERY Duration (min): 6 min : 0 sec HR (bpm): 68 SBP (mmHg): 122 DBP (mmHg): 90 Stage: RECOVERY Duration (min): 7 min : 0 sec HR (bpm): 67 SBP (mmHg): 143 DBP (mmHg): 64 Stage: RECOVERY Duration (min): 8 min : 0 sec HR (bpm): 68 SBP (mmHg): 143 DBP (mmHg): 64 Stage: RECOVERY Duration (min): 9 min : 0 sec HR (bpm): 69 SBP (mmHg): 141 DBP (mmHg): 65 Stage: RECOVERY Duration (min): 9 min : 7 sec HR (bpm): 68 SBP (mmHg): 141 DBP (mmHg): 65 Rest HR: 66 bpm Peak HR: 90 bpm Rest Sys BP: 119 mmHg Peak Sys BP: 164 mmHg Max Pred HR: 154 bpm % Max Pred HR: 58 % Target HR: 131 bpm Max RPP: 14,760 bpm*mmHg Termination Reason: Completed protocol Cardiac Symptoms: Shortness of breath Total Time: 1 min : 0 sec Rest Lanza BP: 88 mmHg Peak Lanza BP: 100 mmHg Total Dose: 0.4 mg Resting ECG Sinus rhythm, LBBB. Stress ECG No ST changes. Arrhythmias None. Report Signatures
== END 2024-11-25 07:01 | disposition home or self-care (01) ==
PROVIDERS: PCP Family Medicine; Visit Provider Internal Medicine Cardiovascular Disease
DX: Z01.810 Encounter for preprocedural cardiovascular examination (principal)
CPT/HCPCS: 78452; 93017; A9502; J2785

== ENCOUNTER 2024-11-26 16:49 | Observation (INO) | payer MEDICARE, SELFPAY ==
--- NOTE | ~2024-11-26 | XR_ITS ---
EXAMINATION: XR chest 2V 11/26/2024 17:29 INDICATION: Chest pressure PROCEDURE: 2 view chest COMPARISON: No prior studies for comparison. FINDINGS: The lungs are clear. The cardiomediastinal silhouette is within normal limits. There are no pleural effusions. There is no pneumothorax suspected. Status post median sternotomy for CABG. There is a coronary artery stent. IMPRESSION: 1: NO ACUTE CARDIOPULMONARY DISEASE. Reviewed, dictated and finalized at location O.
[2024-11-26 16:53] VITALS: BP 192/75; PULSE 76; RESP 12; TEMP 36.6; O2SAT 100
--- NOTE | 2024-11-26 16:53 | ECG_ITS ---
Test Date: 2024-11-26 16:58:13 Measurements Intervals [place] Rate: 87 P: 95 OR: 179 QRS: -29 QRSD: 152 T: 113 QT: 383 QTc: 462 Interpretive Statements SINUS RHYTHM WITH OCCASIONAL VENTRICULAR PREMATURE COMPLEXES LEFT BUNDLE BRANCH BLOCK ABNORMAL ECG No previous ECG available for comparison Electronically Signed On 11-26-2024 18:39:49 CDT by Drake Chavis D.O.
[2024-11-26 17:14] LABS: Hematocrit 47.5 % (42.0-52.0); Hemoglobin 16.1 g/dL (14.0-18.0); Immature Granulocyte Percent A 0.2 % (0-0.5); Lymphocytes Absolute Auto 2.44 K/mm3 (0.9-3.2); Mean Corpuscular HGB Conc 33.9 g/dl (32-36); Mean Corpuscular Hemoglobin 29.0 pg (26-34); Mean Corpuscular Volume 85.6 fl (80-100); Nucleated Red Blood Cells Absolute Auto 0.000 K/mm3 (0.0-0.012); Nucleated Red Blood Cells Perc 0.0 % (0.0-0.2); Platelet Count Result 277 k/mm3 (150-375); Red Blood Count 5.55 M/mm3 (4.6-6.20); White Blood Count 9.4 K/mm3 (4.5-10.0)
[2024-11-26] MEDS: ASPIRIN 81 MG CHEWABLE TABLET 324 MG PO (17:19)
--- NOTE | 2024-11-26 17:19 | PC.NURSE ---
Pt states takes 81 mg ASA daily
--- NOTE | 2024-11-26 17:23 | ED.CHESTPAIN ---
HPI - Chest Pain General Chief Complaint: Chest Pain <Shelley Anderson PA-C - Last Filed: 11/26/24 21:09> Stated Complaint: chest pain <Shelley Anderson PA-C - Last Filed: 11/26/24 21:09> Time Seen by Provider: 11/26/24 17:05 <Shelley Anderson PA-C - Last Filed: 11/26/24 21:09> History of Present Illness HPI narrative: 64-year-old male with a history of insulin-dependent diabetes, CAD, s/p CABG about 4-5 years ago, hypertension, PAD, dyslipidemia, LBBB, anxiety presents emergency department for intermittent chest pressure and clamminess to his hands for the past 3 days. Patient notes he has been under increased stress recently with work. He states the symptoms seem to be correlated when he feels stressed out or when he is at his apartment and improved when he is out of his apartment preoccupied. He states he gets mild chest pressure when going up the apartment stairs with this is not uncommon for him. He otherwise denies exertional symptoms. He denies radiating symptoms or shortness of breath, cough or congestion, hemoptysis, lower extremity edema, history of VTE, recent surgeries or hospitalizations, abdominal pain. The patient sees plant wire chief Dr. Chavis. He states he has been compliant with his medications. He notes he had a stress test yesterday which was reportedly unremarkable. At the time of my evaluation the patient states he is not currently having any chest pain. <Shelley Anderson PA-C - Last Filed: 11/26/24 21:09> Related Data Home Medications: Home Medications ?Medication ?Instructions ?Recorded ?Confirmed ?Last Taken ?Type aspirin 81 mg tablet,delayed 81 mg PO DAILY 06/19/22 11/12/24 08/19/24 History release coenzyme Q10 100 mg capsule 200 mg PO DAILY 06/19/22 11/12/24 08/19/24 History (CoQ-10) omega 1-sgp-ede-fish oil 300 1 cap PO BID 06/19/22 11/12/24 08/19/24 History mg-1,000 mg capsule (Fish Oil) ferrous sulfate 325 mg (65 mg 325 mg PO EVERY OTHER DAY 0411/12/24 08/19/24 History iron) tablet (Iron (ferrous sulfate)) <Shelley Anderson PA-C - Last Filed: 11/26/24 21:09> Allergies/Adverse Reactions: Allergies Allergy/AdvReac Type Severity Reaction Status Date / Time hydrocodone (From [place]) AdvReac Mild hallucinati Verified 11/26/24 16:59 ons <Shelley Anderson PA-C - Last Filed: 11/26/24 21:09> Review of Systems Review of Systems: All systems reviewed & are unremarkable except as noted in HPI and below <Shelley Anderson PA-C - Last Filed: 11/26/24 21:09> [facility] Past Medical History Medical History: Medical History Hyperlipidemia Old MD (myocardial infarction) CAD (coronary artery disease) Hypertension with heart disease Diabetes mellitus <Shelley Anderson PA-C - Last Filed: 11/26/24 21:09> Surgical History Surgical History: Surgical History History of carpal tunnel release History of coronary artery stent placement S/P CABG (coronary artery bypass graft) <Shelley Anderson PA-C - Last Filed: 11/26/24 21:09> Family History Family History: Family History Father Heart disease Hypertension Sibling Diabetes mellitus Unknown High cholesterol Arthritis <Shelley Anderson PA-C - Last Filed: 11/26/24 21:09> Social History Social History: Social History Smoking packs per day: 0 Smoking cigarettes per day: 0.0 Years smoked: 20 Smoking pack-years: 0.00 Smoking status: Former smoker Tobacco type: cigarettes Second hand tobacco smoke exposure: No Smoking end date: 04/08/03 Additional smoking assessment comments: quit 20 years Alcohol intake: never Alcohol use details: very rare Substance use: current Substance use type: marijuana Other substance usage details: daily - some smoking / some edibles Last use: as needed for pain Do You Feel Safe in your Home?: Yes Lack of Transportation: No Lack of Food: Never True Current Housing: I Have Housing Concerned About Future Housing: No Difficulty Paying Gas/Electric Bills: Decline to Answer Difficulty Paying for Meds: YES Currently Unemployed: No Education: High School Diploma/GED Difficulty w/ Childcare or Family Care: No Living arrangements: alone Occupation/Education: occupation Gender identity (if verbalized by the patient): Male 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 Mildly anxious HEAD: Normocephalic, atraumatic. EYES: EOMI. ENT: Nares clear, no rhinorrhea or epistaxis. Mucous membranes dry NECK: Supple. CHEST: Clear to auscultation. No respiratory distress. HEART: Regular rate and rhythm. No murmur heard. Normal peripheral pulses. ABDOMEN: Soft, nontender, nondistended, normal active bowel sounds. EXTREMITIES: Normal range of motion. No edema. Negative Homans bilaterally SKIN: Warm, dry, no rash. NEURO: No focal deficits. Alert and oriented x3 <Shelley Anderson PA-C - Last Filed: 11/26/24 21:09> Course STEM ASSEMBLER/PA Physician Supervision This visit was performed by both a physician and an APC. For this patient encounter, I reviewed the STEM ASSEMBLER or PA documentation, treatment plan, and medical decision making and had [id number] time with this patient. I performed all aspects of the MDM as documented. <Bhupendra Neumann MD - Last Filed: 11/26/24 21:08> Vital Signs Vital signs: Vital Signs Temperature 97.8 F 11/26/24 16:53 Pulse Rate 76 11/26/24 16:53 Respiratory Rate 12 11/26/24 16:53 Blood Pressure 192/75 H 11/26/24 16:53 Pulse Oximetry 100 11/26/24 16:53 Oxygen Delivery Room Air 11/26/24 16:53 Temperature 98 F 11/26/24 19:34 Pulse Rate 76 11/26/24 19:34 Respiratory Rate 16 11/26/24 19:34 Blood Pressure 120/62 11/26/24 19:34 Pulse Oximetry 96 11/26/24 19:34 Oxygen Delivery Room Air 11/26/24 16:59 <Shelley Anderson PA-C - Last Filed: 11/26/24 21:09> Vital Signs Temperature 97.8 F 11/26/24 16:53 Pulse Rate 76 11/26/24 16:53 Respiratory Rate 12 11/26/24 16:53 Blood Pressure 192/75 H 11/26/24 16:53 Pulse Oximetry 100 11/26/24 16:53 Oxygen Delivery Room Air 11/26/24 16:53 Temperature 98 F 11/26/24 19:34 Pulse Rate 76 11/26/24 19:34 Respiratory Rate 16 11/26/24 19:34 Blood Pressure 120/62 11/26/24 19:34 Pulse Oximetry 96 11/26/24 19:34 Oxygen Delivery Room Air 11/26/24 16:59 <Bhupendra Neumann MD - Last Filed: 11/26/24 21:08> MDM - Chest Pain MDM Narrative Medical decision making narrative: 64-year-old male presents to the emergency department for intermittent chest pain and hand clamminess over the past 3 days. See HPI for further history. Vital signs with hypertension of 192/75. Patient does appear mildly anxious which I suspect is contributing to hypertension. Will provide Ativan and recheck it. His EKG shows sinus rhythm with occasional PVCs, LBBB, no significant changes when compared to prior EKG. Original troponin negative. D-dimer within normal limits, wells score is low risk. CBC without leukocytosis or anemia. Chemistries with a bicarb of 20 anion gap of 14, patient does appear dry on exam. Fluids provided. Chest x-ray shows no acute cardiopulmonary disease. Patient re-evaluated after Ativan reports improvement. His blood pressure did improve to 120/62 after Ativan. He is resting comfortably in exam bed. Chart review shows results of his NM jenna stress with perfusion yesterday on 11/25/24 Impression: 1. Normal myocardial perfusion at rest and during stress. 2. Left ventricular ejection fraction measuring 58%. Repeat troponin did increase from <0.012 to 0.024. Pt states he is not currently having chest pain. Given significant CAD hx, heart score of 5 and increasing troponin, recommend admission. Pt in agreement with this. Discussed with hospitalist, Jasmin COLVIN, who agrees to admission. Advises admission to tele under obs. supervisor display fabrication recommending admission to IMU given heart score of 5. Bed status was changed by charge nurse. <Shelley Anderson PA-C - Last Filed: 11/26/24 21:09> Lab Data Result diagrams: 11/26/24 17:09 11/26/24 17:09 <Shelley Anderson PA-C - Last Filed: 11/26/24 21:09> Labs: Lab Results 11/26/24 11/26/24 11/26/24 Range/Units 17:08 17:09 19:52 WBC 9.4 (4.5-10.0) K/mm3 RBC 5.55 (4.6-6.20) M/mm3 Hgb 16.1 (14.0-18.0) g/dL Hct 47.5 (42.0-52.0) % MCV 85.6 (80-100) fl MCH 29.0 (26-34) pg MCHC 33.9 (32-36) g/dl RDW 12.2 (11.5-14.5) % Plt Count 277 (150-375) k/mm3 MPV 10.2 (7.4-10.4) fl Immature Gran % (Auto) 0.2 (0-0.5) % Neut % (Auto) 61.2 (45.5-73.1) % Lymph % (Auto) 26.0 (18.3-44.2) % [place] % (Auto) 10.2 H (2.6-8.5) % Eos % (Auto) 2.0 (0-4.4) % Baso % (Auto) 0.4 (0.2-1.2) % Lymph # (Auto) 2.44 (0.9-3.2) K/mm3 [place] # (Auto) 1.0 H (0.1-0.6) K/mm3 Eos # (Auto) 0.2 (0-0.3) K/mm3 Baso # (Auto) 0.0 (0.0-0.1) K/mm3 Abs Immat Gran (auto) 0.02 (0.00-0.031) K/mm3 Absolute Neuts (auto) 5.7 (1.3-6.7) K/mm3 Absolute Nucleated RBC 0.000 (0.0-0.012) K/mm3 Nucleated RBC % 0.0 (0.0-0.2) % PT 14.3 (11.1-14.7) Seconds INR 1.1 APTT 28.3 (22.3-36.8) Seconds D-Dimer 0.38 (<0.48) ug/mL Sodium 134 L (137-145) mmol/L Potassium 4.2 (3.4-5.0) mmol/L Chloride 100 (98-107) mmol/L Carbon Dioxide 20 L (22-30) mmol/L Anion Gap 14 H (4-12) mmol/L BUN 18 (9-20) mg/dL Creatinine 0.98 (0.7-1.3) mg/dL Estim Creat Clear Calc 63 ml/min Estimated GFR > 60 (59 - ) Glucose 171 H (65-110) mg/dL POC Capillary Glucose (65-105) mg/dl Hemoglobin A1c Pending Calcium 10.0 (8.4-10.2) mg/dL Total Bilirubin 0.8 (0.2-1.3) mg/dL AST 58 (17-59) U/L ALT 71 H (6-50) U/L Alkaline Phosphatase 98 (38-126) U/L Troponin I < 0.012 0.024 D (0.000-0.034) ng/mL Total Protein 7.9 (6.3-8.2) g/dL Albumin 4.8 (3.5-5.1) g/dL Lipase 118 (23-300) U/L // Range/Units 20:59 WBC (4.5-10.0) K/mm3 RBC (4.6-6.20) M/mm3 Hgb (14.0-18.0) g/dL Hct (42.0-52.0) % MCV (80-100) fl MCH (26-34) pg MCHC (32-36) g/dl RDW (11.5-14.5) % Plt Count (150-375) k/mm3 MPV (7.4-10.4) fl Immature Gran % (Auto) (0-0.5) % Neut % (Auto) (45.5-73.1) % Lymph % (Auto) (18.3-44.2) % [place] % (Auto) (2.6-8.5) % Eos % (Auto) (0-4.4) % Baso % (Auto) (0.2-1.2) % Lymph # (Auto) (0.9-3.2) K/mm3 [place] # (Auto) (0.1-0.6) K/mm3 Eos # (Auto) (0-0.3) K/mm3 Baso # (Auto) (0.0-0.1) K/mm3 Abs Immat Gran (auto) (0.00-0.031) K/mm3 Absolute Neuts (auto) (1.3-6.7) K/mm3 Absolute Nucleated RBC (0.0-0.012) K/mm3 Nucleated RBC % (0.0-0.2) % PT (11.1-14.7) Seconds INR APTT (22.3-36.8) Seconds D-Dimer (<0.48) ug/mL Sodium (137-145) mmol/L Potassium (3.4-5.0) mmol/L Chloride (98-107) mmol/L Carbon Dioxide (22-30) mmol/L Anion Gap (4-12) mmol/L BUN (9-20) mg/dL Creatinine (0.7-1.3) mg/dL Estim Creat Clear Calc ml/min Estimated GFR (59 - ) Glucose (65-110) mg/dL POC Capillary Glucose 128 H (65-105) mg/dl Hemoglobin A1c Calcium (8.4-10.2) mg/dL Total Bilirubin (0.2-1.3) mg/dL AST (17-59) U/L ALT (6-50) U/L Alkaline Phosphatase (38-126) U/L Troponin I (0.000-0.034) ng/mL Total Protein (6.3-8.2) g/dL Albumin (3.5-5.1) g/dL Lipase (23-300) U/L <Shelley Anderson PA-C - Last Filed: 11/26/24 21:09> Lab Results 11/26/24 11/26/24 11/26/24 Range/Units 17:08 17:09 19:52 WBC 9.4 (4.5-10.0) K/mm3 RBC 5.55 (4.6-6.20) M/mm3 Hgb 16.1 (14.0-18.0) g/dL Hct 47.5 (42.0-52.0) % MCV 85.6 (80-100) fl MCH 29.0 (26-34) pg MCHC 33.9 (32-36) g/dl RDW 12.2 (11.5-14.5) % Plt Count 277 (150-375) k/mm3 MPV 10.2 (7.4-10.4) fl Immature Gran % (Auto) 0.2 (0-0.5) % Neut % (Auto) 61.2 (45.5-73.1) % Lymph % (Auto) 26.0 (18.3-44.2) % [place] % (Auto) 10.2 H (2.6-8.5) % Eos % (Auto) 2.0 (0-4.4) % Baso % (Auto) 0.4 (0.2-1.2) % Lymph # (Auto) 2.44 (0.9-3.2) K/mm3 [place] # (Auto) 1.0 H (0.1-0.6) K/mm3 Eos # (Auto) 0.2 (0-0.3) K/mm3 Baso # (Auto) 0.0 (0.0-0.1) K/mm3 Abs Immat Gran (auto) 0.02 (0.00-0.031) K/mm3 Absolute Neuts (auto) 5.7 (1.3-6.7) K/mm3 Absolute Nucleated RBC 0.000 (0.0-0.012) K/mm3 Nucleated RBC % 0.0 (0.0-0.2) % PT 14.3 (11.1-14.7) Seconds INR 1.1 APTT 28.3 (22.3-36.8) Seconds D-Dimer 0.38 (<0.48) ug/mL Sodium 134 L (137-145) mmol/L Potassium 4.2 (3.4-5.0) mmol/L Chloride 100 (98-107) mmol/L Carbon Dioxide 20 L (22-30) mmol/L Anion Gap 14 H (4-12) mmol/L BUN 18 (9-20) mg/dL Creatinine 0.98 (0.7-1.3) mg/dL Estim Creat Clear Calc 63 ml/min Estimated GFR > 60 (59 - ) Glucose 171 H (65-110) mg/dL POC Capillary Glucose (65-105) mg/dl Hemoglobin A1c Pending Calcium 10.0 (8.4-10.2) mg/dL Total Bilirubin 0.8 (0.2-1.3) mg/dL AST 58 (17-59) U/L ALT 71 H (6-50) U/L Alkaline Phosphatase 98 (38-126) U/L Troponin I < 0.012 0.024 D (0.000-0.034) ng/mL Total Protein 7.9 (6.3-8.2) g/dL Albumin 4.8 (3.5-5.1) g/dL Lipase 118 (23-300) U/L // Range/Units 20:59 WBC (4.5-10.0) K/mm3 RBC (4.6-6.20) M/mm3 Hgb (14.0-18.0) g/dL Hct (42.0-52.0) % MCV (80-100) fl MCH (26-34) pg MCHC (32-36) g/dl RDW (11.5-14.5) % Plt Count (150-375) k/mm3 MPV (7.4-10.4) fl Immature Gran % (Auto) (0-0.5) % Neut % (Auto) (45.5-73.1) % Lymph % (Auto) (18.3-44.2) % [place] % (Auto) (2.6-8.5) % Eos % (Auto) (0-4.4) % Baso % (Auto) (0.2-1.2) % Lymph # (Auto) (0.9-3.2) K/mm3 [place] # (Auto) (0.1-0.6) K/mm3 Eos # (Auto) (0-0.3) K/mm3 Baso # (Auto) (0.0-0.1) K/mm3 Abs Immat Gran (auto) (0.00-0.031) K/mm3 Absolute Neuts (auto) (1.3-6.7) K/mm3 Absolute Nucleated RBC (0.0-0.012) K/mm3 Nucleated RBC % (0.0-0.2) % PT (11.1-14.7) Seconds INR APTT (22.3-36.8) Seconds D-Dimer (<0.48) ug/mL Sodium (137-145) mmol/L Potassium (3.4-5.0) mmol/L Chloride (98-107) mmol/L Carbon Dioxide (22-30) mmol/L Anion Gap (4-12) mmol/L BUN (9-20) mg/dL Creatinine (0.7-1.3) mg/dL Estim Creat Clear Calc ml/min Estimated GFR (59 - ) Glucose (65-110) mg/dL POC Capillary Glucose 128 H (65-105) mg/dl Hemoglobin A1c Calcium (8.4-10.2) mg/dL Total Bilirubin (0.2-1.3) mg/dL AST (17-59) U/L ALT (6-50) U/L Alkaline Phosphatase (38-126) U/L Troponin I (0.000-0.034) ng/mL Total Protein (6.3-8.2) g/dL Albumin (3.5-5.1) g/dL Lipase (23-300) U/L <Bhupendra Neumann MD - Last Filed: 11/26/24 21:08> Discharge Plan Discharge Clinical Impression: Chest pain Qualifiers: Chest pain type: unspecified Qualified Code(s): R07.9 - Chest pain, unspecified <Shelley Anderson PA-C - Last Filed: 11/26/24 21:09> Patient Disposition: Still a Patient <Shelley Anderson PA-C - Last Filed: 11/26/24 21:09> Condition: Stable <Shelley Anderson PA-C - Last Filed: 08/21/25 21:09> Patient Language: Italian <Shelley Anderson PA-C - Last Filed: 11/26/24 21:09> Prescriptions: No Action hydrocodone-acetaminophen 5-325 mg tablet 1 tablet PO BID PRN (Reason: severe pain (scale score 7-10)) Qty: 14 0RF lorazepam 1 mg tablet 1 mg PO ONCE PRN (Reason: anxiety) Qty: 4 0RF Rx Instructions: Take 1 tablet 2 hours before MRI. May take 1 additional tablet 30 min prior to MRI if needed. sertraline 100 mg tablet 100 mg PO DAILY Qty: 30 3RF coenzyme Q10 [CoQ-10] 100 mg capsule 200 mg PO DAILY aspirin 81 mg tablet,delayed release (DR/EC) 81 mg PO DAILY omega 9-ejk-hdh-fish oil [Fish Oil] 300-1,000 mg capsule 1 cap PO BID ferrous sulfate [Iron (ferrous sulfate)] 325 mg (65 mg iron) Tablet 325 mg PO EVERY OTHER DAY metoprolol succinate 100 mg tablet extended release 24 hr 100 mg PO DAILY Qty: 90 3RF Jardiance 25 mg tablet 25 mg PO DAILY Qty: 90 3RF atorvastatin 80 mg tablet 80 mg PO QHS Qty: 90 2RF metformin 1,000 mg tablet 1,000 mg PO BID Qty: 180 4RF (DME) pen needle, diabetic [BD Ultra-Fine Mini Pen Needle] 31 gauge x 3/16 needle See Rx Instructions .Route Qty: 90 5RF Rx Instructions: As directed to inject insulin four times daily gabapentin 300 mg capsule 300 mg PO BID Qty: 180 1RF insulin lispro [Humalog KwikPen Insulin] 100 unit/mL insulin pen 1 sliding scale dose subcut USEASDIRECTD Qty: 15 5RF Rx Instructions: max 30u of insulin lispro/day lisinopril 20 mg tablet 20 mg PO DAILY Qty: 90 2RF insulin glargine [Lantus Solostar U-100 Insulin] 100 unit/mL (3 mL) insulin pen See Rx Instructions .ROUTE .COMPLEX Qty: 15 2RF Dose Instruction: INJECT 12 UNITS SUBCUTANEOUSLY IN THE EVENING Rx Instructions: INJECT 12 UNITS SUBCUTANEOUSLY IN THE EVENING <Shelley Anderson PA-C - Last Filed: 11/26/24 21:09> Follow-up/Referrals: Rodney Patel MD [Primary Care Provider, [facility]] <Shelley Anderson PA-C - Last Filed: 11/26/24 21:09> Quality HEART score for chest pain patients History: slightly suspicious <Shelley Anderson PA-C - Last Filed: 11/26/24 21:09> ECG: non specific repolarization disturbance/LBTB/PM <Shelley Anderson PA-C - Last Filed: 11/26/24 21:09> Age: > or = to 65 years <Shelley Anderson PA-C - Last Filed: 11/26/24 21:09> Risk factors: > or = to 3 risk factors of atherosclerotic disease <Shelley Anderson PA-C - Last Filed: 11/26/24 21:09> Troponin: < or = to 1x normal limit <Shelley Anderson PA-C - Last Filed: 11/26/24 21:09> Heart score: 5 <Shelley Anderson PA-C - Last Filed: 11/26/24 21:09> 5 <Bhupendra Neumann MD - Last Filed: 11/26/24 21:08>
[2024-11-26 17:27] LABS: INR 1.1; Partial Thromboplastin Time 28.3 Seconds (22.3-36.8); Prothrombin Time 14.3 Seconds (11.1-14.7)
[2024-11-26] MEDS: LORazepam (*CRX) 1 MG TABLET PO (17:29)
[2024-11-26 17:31] LABS: Alanine Aminotransferase 71 U/L (6-50); Albumin Level 4.8 g/dL (3.5-5.1); Alkaline Phosphatase 98 U/L (38-126); Anion Gap 14 mmol/L (4-12); Aspartate Amino Transferase 58 U/L (17-59); Bilirubin,Total 0.8 mg/dL (0.2-1.3); Blood Urea Nitrogen 18 mg/dL (9-20); Calcium 10.0 mg/dL (8.4-10.2); Carbon Dioxide 20 mmol/L (22-30); Chloride 100 mmol/L (98-107); Estimated CRCL calculation 63 ml/min; Estimated Glomerular Filt Rate > 60; Glucose 171 mg/dL (65-110); Lipase 118 U/L (23-300); Potassium 4.2 mmol/L (3.4-5.0); Sodium 134 mmol/L (137-145); Total Protein 7.9 g/dL (6.3-8.2)
[2024-11-26 17:39] LABS: Troponin I < 0.012 ng/mL (0.000-0.034)
[2024-11-26 17:47] VITALS: BP 173/64; PULSE 74; RESP 13; O2SAT 100
[2024-11-26 18:17] VITALS: BP 148/60; PULSE 75; RESP 14; O2SAT 99
[2024-11-26] MEDS: SODIUM CHLORIDE 0.9% IV 1,000 ML 999 ML IV CONT (18:17)
--- NOTE | 2024-11-26 19:12 | PC.NURSE ---
Received report from NARDA Mckeon for cont. of care. Pt AOX4, ambulatory to bathroom with steady gait. Pt denies any pain or discomfort at this time.
--- OUTSIDE RECORDS SUMMARY | 2024-11-26 19:13 | XMS_ITS | Clinical Summary ---
Author Organization [facility] Address [address] [place] [address] Care Team Providers Care Order Expediter Name Role Phone Yaakov Lee DO Primary Care Provider [phone] Allergies No known active allergies Medications HYDROcodone-acet [...] on file Legal Sex Male 9:23 PM [employer] Gender Identity Not on file Sexual Orientation Not on file Last Filed Vital Signs Vital Sign Reading Time Taken Comments Blood Pressure 152/77 04/12/2020 10:32 PM [employer] Pulse 90 04/12/2020 10:32 PM [employer] Temperature 36.8 C (98.3 F) 04/12/2020 10:32 PM [employer] Respiratory Rate 10 04/12/2020 10:32 PM [employer] Oxygen Saturation 100% 04/12/2020 10:32 PM [employer] Inhaled Oxygen Concentration - - Weight 91.9 kg (202 lb 9.6 oz) 04/12/2020 10:32 PM [employer] Height 172.7 cm (5' 8) 04/12/2020 10:32 PM [employer] Body Mass Index 30.81 04/12/2020 10:32 PM [employer] Plan of Treatment Health Maintenance Due Date [...] this topic Insurance [employer] Care Teams Order Expediter Relationship Specialty Start Date End Date Yaakov Lee DO PCP - General FAMILY PRACTICE 03/04/19
[2024-11-26 19:34] VITALS: BP 120/62; PULSE 76; RESP 16; TEMP 36.6; O2SAT 96
--- NOTE | 2024-11-26 19:50 | ECG_ITS ---
Test Date: 2024-11-26 19:54:26 Measurements Intervals [place] Rate: 73 P: 19 IA: 174 QRS: -44 QRSD: 149 T: 112 QT: 415 QTc: 459 Interpretive Statements SINUS RHYTHM LEFT AXIS DEVIATION LEFT BUNDLE BRANCH BLOCK ABNORMAL ECG Compared to ECG 11/26/2024 16:58:13 NO SIGNIFICANT CHANGE Electronically Signed On 11-27-2024 06:31:27 CDT by Drake Chavis D.O.
[2024-11-26 20:23] LABS: Troponin I 0.024 ng/mL (0.000-0.034)
--- NOTE | 2024-11-26 20:39 | PM.IMHP ---
H&P: HPI History of Present Illness Date/Time: 11/26/24 20:39 Chief Complaint: Chest Pain Narrative: Severe pleasant 64-year-old male patient with past medical history significant for coronary artery disease status post SD status post CABG, insulin-dependent diabetes mellitus, hypertension, peripheral arterial disease, hyperlipidemia, known left bundle-branch block and anxiety who comes to the emergency room today with complaints of having chest pain for past 3 days. Patient states he has been under increased amount of stress at work lately and when he has time to sit and think he thinks about the stress and he starts having worsening chest pain. Patient is followed by publishing agent, Dr. Chavis and underwent a nuclear med stress test yesterday November 25, 2024 that showed no ischemic changes and an ejection fraction 58%. Patient notes that his pain has persisted and presents to the emergency room today with these complaints. He denies any radiation of pain, associated shortness of breath, nausea/vomiting, or diaphoresis. Vital signs are stable. Workup performed in the emergency room including CBC that is normal, normal metabolic panel, normal coags, normal D-dimer, normal lipase. Initial troponin was also normal at 0.012 and then doubled to 0.024. Patient has a heart score of 5. Given the doubling of his troponin and his increased risk factors patient will be admitted in this setting for observation overnight to continue to trend troponins and rule out NSTEMI. Patient was given Ativan in the emergency room and noted that after receiving Ativan he felt better. He was also given aspirin 324 mg and a L of normal saline. Review of Systems Review of Systems: All systems reviewed & are unremarkable except as noted in HPI and below [facility] Past Medical History Medical History Hyperlipidemia [place] (myocardial infarction) CAD (coronary artery disease) Hypertension with heart disease Diabetes mellitus Surgical History Surgical History History of carpal tunnel release History of coronary artery stent placement S/P CABG (coronary artery bypass graft) Family History Family History Father Heart disease Hypertension Sibling Diabetes mellitus Unknown High cholesterol Arthritis Social History Social History Smoking packs per day: 0 Smoking cigarettes per day: 0.0 Years smoked: 20 Smoking pack-years: 0.00 Smoking status: Former smoker Tobacco type: cigarettes Second hand tobacco smoke exposure: No Smoking end date: 04/08/03 Additional smoking assessment comments: quit 20 years Alcohol intake: never Alcohol use details: very rare Substance use: current Substance use type: marijuana Other substance usage details: daily - some smoking / some edibles Last use: as needed for pain Do You Feel Safe in your Home?: Yes Lack of Transportation: No Lack of Food: Never True Current Housing: I Have Housing Concerned About Future Housing: No Difficulty Paying Gas/Electric Bills: Decline to Answer Difficulty Paying for Meds: YES Currently Unemployed: No Education: High School Diploma/GED Difficulty w/ Childcare or Family Care: No Living arrangements: alone Occupation/Education: occupation Gender identity (if verbalized by the patient): Male 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 [employer] Sexual Orientation (if Verbalized by the Patient): Straight or Heterosexual Spiritual care concerns: No Meds Home Medications and Allergies Home Medications ?Medication ?Instructions ?Recorded ?Confirmed ?Type aspirin 81 mg tablet,delayed 81 mg PO DAILY 06/19/22 11/12/24 History release coenzyme Q10 100 mg capsule 200 mg PO DAILY 06/19/22 11/12/24 History (CoQ-10) omega 0-vui-woy-fish oil 300 1 cap PO BID 06/19/22 11/12/24 History mg-1,000 mg capsule (Fish Oil) ferrous sulfate 325 mg (65 mg 325 mg PO EVERY OTHER DAY 07/23/23 11/12/24 History iron) tablet (Iron (ferrous sulfate)) metoprolol succinate 100 mg 100 mg PO DAILY #90 tabs 01/10/24 11/12/24 Rx tablet,extended release 24 hr empagliflozin 25 mg tablet 25 mg PO DAILY #90 tabs 01/19/24 11/12/24 Rx (Jardiance) atorvastatin 80 mg tablet 80 mg PO QHS #90 tabs 04/06/24 11/12/24 Rx metformin 1,000 mg tablet 1,000 mg PO BID #180 tabs 04/06/24 11/12/24 Rx pen needle, diabetic 31 gauge x #90 ea 01/14/25 08/07/25 Rx 3/16 (BD Ultra-Fine Mini Pen Needle) gabapentin 300 mg capsule 300 mg PO BID #180 caps 07/19/24 11/12/24 Rx insulin lispro 100 unit/mL 1 sliding scale dose subcut 07/20/24 11/12/24 Rx subcutaneous pen (Humalog KwikPen USEASDIRECTD #15 mL (U-100) Insulin) lisinopril 20 mg tablet 20 mg PO DAILY #90 tabs 09/15/24 11/12/24 Rx hydrocodone 5 mg-acetaminophen 325 1 tablet PO BID PRN severe pain 09/24/24 11/12/24 Rx mg tablet (scale score 7-10) #14 tabs Lantus Solostar U-100 Insulin 100 See Rx Instructions .Route 10/10/24 11/12/24 Rx unit/mL (3 mL) subcutaneous pen .COMPLEX #15 mL (insulin glargine) lorazepam 1 mg tablet 1 mg PO ONCE PRN anxiety #4 tabs 10/12/24 11/12/24 Rx sertraline 100 mg tablet 100 mg PO DAILY #30 tabs 11/12/24 11/12/24 Rx Allergies Allergy/AdvReac Type Severity Reaction Status Date / Time hydrocodone (From [place]) AdvReac Mild hallucinati Verified 11/26/24 16:59 ons Vital Signs Vital Signs - 24 hr 11/26/24 16:53 11/26/24 16:59 11/26/24 17:47 Temperature 97.8 F Pulse Rate 76 74 Respiratory Rate 12 13 Blood Pressure 192/75 H 173/64 H Pulse Oximetry 100 100 Oxygen Delivery Room Air Room Air 11/26/24 18:17 11/26/24 19:34 Temperature 98 F Pulse Rate 75 76 Respiratory Rate 14 16 Blood Pressure 148/60 H 120/62 Pulse Oximetry 99 96 Oxygen Delivery Exam Const: General: comfortable and no acute distress Other: Pleasant male patient sitting on the side of the stretcher at this time in no acute distress. He denies any current pain at this time. HENMT: Face/Nose/Sinus: Normal nares present Mouth: Yes moist mucous membranes Eyes: General: appearance normal, both eyes and all related structures Sclera: sclerae normal Pupils: Equal, round and reactive pupils present EOM: EOMs intact bilaterally Neck: Neck: supple and no JVD Lymphatic: lymphadenopathy not noted Chest: Other: Nontender Resp: Effort & Inspection: normal respiratory effort Auscultation: clear to auscultation bilaterally Cardio: Rate: regular rate Rhythm: regular rhythm Heart sounds: no gallops, no murmurs and no rubs GI: GI Palp: Yes Soft to palpation and No Tenderness to palpation present (GI) Auscultation: normal bowel sounds Skin: General skin exam: normal color, no rashes or lesions noted and no erythema Wounds: no wounds Neuro: Speech: normal speech Motor exam (neuro): 5/5 motor strength present throughout and Normal motor muscle tone present throughout Sensory Exam: normal sensation Extrem: Other: Freely and equally moves all extremities well without deficit. Psych: Mental Status: mental status grossly normal Affect: Anxious affect present H&P: Results Labs Labs: Short CBC 11/26/24 Range/Units 17:09 WBC 9.4 (4.5-10.0) K/mm3 Hgb 16.1 (14.0-18.0) g/dL Hct 47.5 (42.0-52.0) % Plt Count 277 (150-375) k/mm3 BMP 11/26/24 17:09 Sodium 134 L Potassium 4.2 Chloride 100 Carbon Dioxide 20 L BUN 18 Creatinine 0.98 Glucose 171 H Calcium 10.0 Cardiac Enzymes 11/26/24 11/26/24 Range/Units 17:09 19:52 Troponin I < 0.012 0.024 D (0.000-0.034) ng/mL Liver Function 11/26/24 Range/Units 17:09 Total Bilirubin 0.8 (0.2-1.3) mg/dL AST 58 (17-59) U/L ALT 71 H (6-50) U/L Alkaline Phosphatase 98 (38-126) U/L Albumin 4.8 (3.5-5.1) g/dL Assessment and Plan Assessment and plan (1) Chest pain: Qualifiers: Chest pain type: unspecified Qualified Code(s): R07.9 - Chest pain, unspecified Code(s): R07.9 - Chest pain, unspecified Status: Acute Assessment and Plan: And observation overnight for telemetry Trend troponins Pain medication morphine 4 mg IV push q.4 hours p.r.n. pain Consult cardiology Monitor vital signs and trend labs P.r.n. EKG if worsening of pain. Nuclear med stress test from November 25 2024 was reviewed. New ischemic evidence present and ejection fraction is normal at 50%. Patient's left bundle-branch block is not new. EKG showing normal sinus rhythm with occasional PVCs with left bundle branch block noted to be 87 beats per minute ventricular. Anticoagulation with Lovenox (2) Anxiety: Code(s): F41.9 - Anxiety disorder, unspecified Status: Acute Assessment and Plan: Suspect there is an anxiety component associated with patient's symptoms as he mentions work is stressing him out lately and when he thinks about it it causes him to have more pain. P.r.n. Valium ordered 2.5 mg IV push q.4 hours p.r.n. anxiety. (3) Hypertension with heart disease: Code(s): I11.9 - Hypertensive heart disease without heart failure Status: Chronic Assessment and Plan: Chronic in nature. Trend vital signs Reorder home medications once verified and confirmed Patient appears currently have good control with blood pressure 120/62. (4) CAD (coronary artery disease): Code(s): I25.10 - Atherosclerotic heart disease of [place] coronary artery without angina pectoris Status: Chronic Assessment and Plan: Note. History of CABG 4-5 years ago status post SD. Heart score 5 and with doubling troponin today from 0.012-0.024, patient being admitted observation with tele for rule out with serial trops due to his high risk (5) Diabetes mellitus, with long-term current use of insulin: Code(s): E11.9 - Type 2 diabetes mellitus without complications; Z79.4 - FPC (current) use of insulin Status: Chronic Assessment and Plan: Hold oral hypoglycemics Adult insulin sliding scale low dose Glucose checks a.c. and HS and p.r.n. Diabetic diet Check A1c Hypoglycemic protocol Quality VTE Prophylaxis VTE prophylaxis: pharmacologic ordered Hospitalist MIPS Advance Care Plan I have confirmed that the patient's Advanced Care Plan is present, code status is documented, or surrogate decision maker is listed in patient medical record.: Yes Medication Reconciliation I have utilized all available resources to obtain, update and review the patients current medications (includes all prescriptions, OTC, herbals, cannabis, and nutritional supplements).: Yes
[2024-11-26] MEDS: ENOXAPARIN 40 MG/0.4 ML SYRINGE SUB-Q (21:07)
[2024-11-26 21:40] LABS: Hemoglobin A1C 6.8 % (<5.7)
[2024-11-26 22:18] VITALS: BMI 28.0
[2024-11-26 22:31] VITALS: BP 131/52; PULSE 74; RESP 16; TEMP 36.8; O2SAT 99
[2024-11-26 22:32] VITALS: BMI 27.1
[2024-11-26 23:15] VITALS: PULSE 74; RESP 16; O2SAT 99
--- NOTE | 2024-11-26 23:17 | ADMGEN ---
This patient, Alejandro Gupta III, was admitted to IMU Room 205-02 on 11/26/24 at 2220. Patient/family oriented to hospital policies and general routines including ID bracelet, bed and alarms, visiting hours, pain management, procedures, bathroom and other care routines, personal items, smoking policy, room service/diet, and visiting hours. Information on how to activate the Rapid Response Team has been discussed. Patient/Family are encouraged to report perceived risks to care and to ask questions if they do not understand what they are told or what they should do.
[2024-11-26 23:35] LABS: Troponin I 0.040 ng/mL (0.000-0.034)
[2024-11-27] VITALS (8 sets, daily range): BP systolic 121–156; BP diastolic 53–71; PULSE 64–87; RESP 15–16; TEMP 36.5–36.7; O2SAT 96–100
[2024-11-27] MEDS: diazePAM INJ (*CRX) 10 MG/2 ML SYRINGE 2.5 MG IV PUSH (00:09)
[2024-11-27 04:15] LABS: Hematocrit 42.1 % (42.0-52.0); Hemoglobin 14.1 g/dL (14.0-18.0); Immature Granulocyte Percent A 0.2 % (0-0.5); Lymphocytes Absolute Auto 1.62 K/mm3 (0.9-3.2); Mean Corpuscular HGB Conc 33.5 g/dl (32-36); Mean Corpuscular Hemoglobin 28.6 pg (26-34); Mean Corpuscular Volume 85.4 fl (80-100); Nucleated Red Blood Cells Absolute Auto 0.000 K/mm3 (0.0-0.012); Nucleated Red Blood Cells Perc 0.0 % (0.0-0.2); Platelet Count Result 190 k/mm3 (150-375); Red Blood Count 4.93 M/mm3 (4.6-6.20); White Blood Count 6.1 K/mm3 (4.5-10.0)
[2024-11-27 04:26] LABS: Alanine Aminotransferase 57 U/L (6-50); Albumin Level 3.9 g/dL (3.5-5.1); Alkaline Phosphatase 74 U/L (38-126); Anion Gap 8 mmol/L (4-12); Aspartate Amino Transferase 42 U/L (17-59); Bilirubin,Total 0.7 mg/dL (0.2-1.3); Blood Urea Nitrogen 14 mg/dL (9-20); Calcium 9.2 mg/dL (8.4-10.2); Carbon Dioxide 22 mmol/L (22-30); Chloride 106 mmol/L (98-107); Estimated CRCL calculation 84 ml/min; Estimated Glomerular Filt Rate > 60; Glucose 114 mg/dL (65-110); Magnesium 2.0 mg/dL (1.6-2.3); Potassium 4.0 mmol/L (3.4-5.0); Sodium 136 mmol/L (137-145); Total Protein 6.3 g/dL (6.3-8.2)
[2024-11-27 04:28] LABS: INR 1.2; Partial Thromboplastin Time 35.8 Seconds (22.3-36.8); Prothrombin Time 15.2 Seconds (11.1-14.7)
[2024-11-27 04:57] LABS: Thyroid Stimulating Hormone Reflex 1.840 uIU/mL (0.465-4.68)
[2024-11-27 09:27] LABS: Troponin I 0.020 ng/mL (0.000-0.034)
--- NOTE | 2024-11-27 11:28 | PM.CNCAR ---
Assessment and Plan Assessment and plan (1) Chest pain: Qualifiers: Chest pain type: unspecified Qualified Code(s): R07.9 - Chest pain, unspecified Code(s): R07.9 - Chest pain, unspecified Status: Acute Assessment and Plan: CP resolved. He has been r/o by serial troponin. Nuclear stress test on 11/25/24 is normal. No further cardiac workup. May d/c home from cardiology standpoint and just keep regular f/u with me. (2) CAD (coronary artery disease), autologous vein bypass graft: Code(s): I25.810 - Atherosclerosis of coronary artery bypass graft(s) without angina pectoris Status: Acute Assessment and Plan: Stable. (3) LBBB (left bundle branch block): Code(s): I44.7 - Left bundle-branch block, unspecified Status: Acute History of Present Illness History of Present Illness Consult date/time: 11/27/24 11:28 Reason For Visit: chest pain Narrative: 64 yr old man who is my regular cardiology patient and a patient of Dr. Patel presents to ER for chest pain. He has a history of CAD, CABG, PAD, LBBB, DM, hypertension, dyslipidemia, anxiety, RSV infection on 03/14/23, remote smoking. Reports he is under a lot of stress recently and felt chest pressure yesterday. He decided to come in to ER for evaluation. Since then he has no more chest pain. He does have history of neck pain and does radiate to his head causing headaches. He has JOHNSON walking about a block and with leg pain and knee pains. Denies chest pain, orthopnea, PND, edema, dizziness, palpitations. Cardiovascular Procedures [place] [facility]:: 01/30/19 [place], [place] CABG x 2 with DIAZ to LAD, SVG to Diag. 01/22/19 [place]: LAD prox 80% restenosis and 95% restenosis of ostial 1st Diag; PTCA of LAD and Diag. November 2017 Stent of LAD and Diag. September 2018 PCTA of in stent restenosis of LD, stent Diag. Echo/MUGA:: 05/21/23 Echo: EF 55-60%, mild LVH, diastolic dysfunction (E/e' 12), mild LAE, mild MR, trace TR. Electrophysiology:: 03/03/23 EKG: Sinus rhythm, LBBB. 09/24/21 EKG: Sinus rhythm, LBBB. Stress Tests:: 11/25/24 Lexixcan myoview: Negative. 06/03/23 SANTY: Right 1.17, TBI 0.45; left 1.14, TBI 0.41 suggestive of PAD. 01/19/19 Carotid duplex: 1-15% stenosis bilateral ICA. Review of Systems Review of Systems: All systems reviewed & are unremarkable except as noted in HPI and below Constitutional: Constitutional: Reports as per HPI, Denies chills and Denies fever(s) Cardiovascular: Cardiovascular: Reports as per HPI, Reports chest pain and Denies irregular heart rhythm Respiratory: Respiratory: Reports as per HPI and Denies dyspnea Gastrointestinal: Gastrointestinal: Reports as per HPI and Denies abdominal pain Genitourinary: Genitourinary: Reports as per HPI and Denies dysuria Musculoskeletal: Musculoskeletal: Reports as per HPI and Reports neck pain Neurologic: Reports as per HPI, Denies dizziness and Denies syncope [facility] Past Medical History Medical History Hyperlipidemia [place] (myocardial infarction) CAD (coronary artery disease) Hypertension with heart disease Diabetes mellitus Surgical History Surgical History History of carpal tunnel release History of coronary artery stent placement S/P CABG (coronary artery bypass graft) Family History Family History Father Heart disease Hypertension Sibling Diabetes mellitus Unknown High cholesterol Arthritis Social History Social History Smoking packs per day: 0 Smoking cigarettes per day: 0.0 Years smoked: 20 Smoking pack-years: 0.00 Smoking status: Former smoker Second hand tobacco smoke exposure: No Additional smoking assessment comments: quit 20 years Alcohol intake: never Alcohol use details: very rare Substance use: current Substance use type: marijuana Other substance usage details: daily - some smoking / some edibles Last use: as needed for pain Do You Feel Safe in your Home?: Yes Lack of Transportation: No Lack of Food: Never True Current Housing: I Have Housing Concerned About Future Housing: No Difficulty Paying Gas/Electric Bills: Decline to Answer Difficulty Paying for Meds: YES Currently Unemployed: No Education: High School Diploma/GED Difficulty w/ Childcare or Family Care: No Living arrangements: alone Occupation/Education: occupation Gender identity (if verbalized by the patient): Male 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 [employer] Sexual Orientation (if Verbalized by the Patient): Straight or Heterosexual Spiritual care concerns: No Meds Home Medications and Allergies Home Medications ?Medication ?Instructions ?Recorded ?Confirmed ?Type aspirin 81 mg tablet,delayed 81 mg PO DAILY 06/19/22 11/26/24 History release coenzyme Q10 100 mg capsule 200 mg PO DAILY 06/19/22 11/26/24 History (CoQ-10) omega 3-sme-afm-fish oil 300 1 cap PO BID 06/19/22 11/26/24 History mg-1,000 mg capsule (Fish Oil) ferrous sulfate 325 mg (65 mg 325 mg PO EVERY OTHER DAY 07/23/23 11/26/24 History iron) tablet (Iron (ferrous sulfate)) metoprolol succinate 100 mg 100 mg PO DAILY #90 tabs 01/10/24 11/26/24 Rx tablet,extended release 24 hr empagliflozin 25 mg tablet 25 mg PO DAILY #90 tabs 01/19/24 11/26/24 Rx (Jardiance) atorvastatin 80 mg tablet 80 mg PO QHS #90 tabs 04/06/24 11/26/24 Rx metformin 1,000 mg tablet 1,000 mg PO BID #180 tabs 04/06/24 11/26/24 Rx gabapentin 300 mg capsule 300 mg PO BID #180 caps 07/19/24 11/26/24 Rx lisinopril 20 mg tablet 20 mg PO DAILY #90 tabs 09/15/24 11/26/24 Rx hydrocodone 5 mg-acetaminophen 325 1 tablet PO BID PRN severe pain 09/24/24 11/26/24 Rx mg tablet (scale score 7-10) #14 tabs Lantus Solostar U-100 Insulin 100 See Rx Instructions .Route 10/10/24 11/26/24 Rx unit/mL (3 mL) subcutaneous pen .COMPLEX #15 mL (insulin glargine) sertraline 100 mg tablet 100 mg PO DAILY #30 tabs 11/12/24 11/26/24 Rx insulin lispro 100 unit/mL 1 sliding scale dose subcut Q8H 11/26/24 11/26/24 History subcutaneous pen (Humalog KwikPen PRN pain (scale score 7-10) (U-100) Insulin) Allergies Allergy/AdvReac Type Severity Reaction Status Date / Time hydrocodone (From [place]) AdvReac Mild hallucinati Verified 11/26/24 16:59 ons Vital Signs Vital Signs - 24 hr 11/26/24 16:53 11/26/24 16:59 11/26/24 17:47 Temperature 97.8 F Pulse Rate 76 74 Respiratory Rate 12 13 Blood Pressure 192/75 H 173/64 H Pulse Oximetry 100 100 Oxygen Delivery Room Air Room Air 11/26/24 18:17 11/26/24 19:34 11/26/24 22:31 Temperature 98 F 98.2 F Pulse Rate 75 76 74 Respiratory Rate 14 16 16 Blood Pressure 148/60 H 120/62 131/52 L Pulse Oximetry 99 96 99 Oxygen Delivery 11/26/24 23:15 11/27/24 00:00 11/27/24 00:00 Temperature 97.8 F Pulse Rate 74 73 75 Respiratory Rate 16 16 Blood Pressure 122/53 L Pulse Oximetry 99 97 Oxygen Delivery Room Air 11/27/24 02:00 11/27/24 04:00 11/27/24 04:00 Temperature 97.7 F Pulse Rate 80 74 70 Respiratory Rate 15 Blood Pressure 121/57 L Pulse Oximetry 96 Oxygen Delivery 11/27/24 04:10 11/27/24 06:00 11/27/24 08:00 Temperature 97.7 F Pulse Rate 80 64 78 Respiratory Rate 16 16 Blood Pressure 140/59 L Pulse Oximetry 97 100 Oxygen Delivery Room Air Exam Const: General: cooperative, healthy appearing and comfortable Resp: Auscultation: clear to auscultation bilaterally, no crackles, no rales, no rhonchi and no wheezes Cardio: Rate: regular rate Rhythm: regular rhythm Heart sounds: no murmurs Peripheral pulses: dorsalis pedis present GI: GI Palp: No abdominal tenderness and Yes Soft to palpation Neuro: General: oriented to person, oriented to place and oriented to time Extrem: Right lower extremity: no edema Left lower extremity: no edema Results Labs and Meds 11/27/24 03:45 11/27/24 03:45 Lab results: Cardiac Enzymes 11/26/24 11/26/24 11/26/24 Range/Units 17:09 19:52 22:57 AST 58 (17-59) U/L Troponin I < 0.012 0.024 D 0.040 H* D (0.000-0.034) ng/mL 11/27/24 11/27/24 Range/Units 03:45 08:45 AST 42 (17-59) U/L Troponin I 0.020 (0.000-0.034) ng/mL Coagulation 11/26/24 11/27/24 Range/Units 17:09 03:45 PT 14.3 15.2 H (11.1-14.7) Seconds APTT 28.3 35.8 (22.3-36.8) Seconds CBC 11/26/24 11/27/24 Range/Units 17:09 03:45 WBC 9.4 6.1 (4.5-10.0) K/mm3 RBC 5.55 4.93 (4.6-6.20) M/mm3 Hgb 16.1 14.1 (14.0-18.0) g/dL Hct 47.5 42.1 (42.0-52.0) % Plt Count 277 190 (150-375) k/mm3 Lymph # (Auto) 2.44 1.62 (0.9-3.2) K/mm3 [place] # (Auto) 1.0 H 0.6 (0.1-0.6) K/mm3 Eos # (Auto) 0.2 0.1 (0-0.3) K/mm3 Baso # (Auto) 0.0 0.1 (0.0-0.1) K/mm3 Comprehensive Metabolic Panel 11/26/24 11/27/24 Range/Units 17:09 03:45 Sodium 134 L 136 L (137-145) mmol/L Potassium 4.2 4.0 (3.4-5.0) mmol/L Chloride 100 106 (98-107) mmol/L Carbon Dioxide 20 L 22 (22-30) mmol/L BUN 18 14 (9-20) mg/dL Creatinine 0.98 0.72 (0.7-1.3) mg/dL Glucose 171 H 114 H (65-110) mg/dL Calcium 10.0 9.2 (8.4-10.2) mg/dL AST 58 42 (17-59) U/L ALT 71 H 57 H (6-50) U/L Alkaline Phosphatase 98 74 (38-126) U/L Total Protein 7.9 6.3 (6.3-8.2) g/dL Albumin 4.8 3.9 (3.5-5.1) g/dL Intake and Output 11/26/24 11/27/24 11/27/24 23:59 07:59 15:59 Intake Total 1000 300 Balance 1000 300 Intake: IV 1000 Sodium Chloride 0.9% IV 1,000 1000 ml @ 999 mls/hr IV CONT .Q1H1M STA Rx#:[id number] Oral 300 Other: # Unmeasured Voids 2 Patient Weight 11/27/24 23:59 Weight 80.8 kg
--- NOTE | 2024-11-27 12:46 | PM.DS ---
DS: Admitting Diagnosis Discharge Date 11/27/24 Admitting Diagnosis chest pain DS: Discharge Diagnosis Discharge Diagnosis (1) Chest pain: Qualifiers: Chest pain type: unspecified Qualified Code(s): R07.9 - Chest pain, unspecified Code(s): R07.9 - Chest pain, unspecified Status: Acute Assessment and Plan: anxiety related P.r.n. EKG if worsening of pain. Nuclear med stress test from November 25 2024 was reviewed. New ischemic evidence present and ejection fraction is normal at 50%. Patient's left bundle-branch block is not new. EKG showing normal sinus rhythm with occasional PVCs with left bundle branch block noted to be 87 beats per minute ventricular. cardiology team on board no further work up needed. (2) Anxiety: Code(s): F41.9 - Anxiety disorder, unspecified Status: Acute Assessment and Plan: Suspect there is an anxiety component associated with patient's symptoms as he mentions work is stressing him out lately and when he thinks about it it causes him to have more pain. sertraline. added buspar (3) Hypertension with heart disease: Code(s): I11.9 - Hypertensive heart disease without heart failure Status: Chronic Assessment and Plan: Chronic in nature. Trend vital signs Reorder home medications once verified and confirmed Patient appears currently have good control with blood pressure 120/62. (4) CAD (coronary artery disease): Code(s): I25.10 - Atherosclerotic heart disease of [place] coronary artery without angina pectoris Status: Chronic Assessment and Plan: Note. History of CABG 4-5 years ago status post AL. 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 Patient states he has been under increased amount of stress at work lately and when he has time to sit and think he thinks about the stress and he starts having worsening chest pain. Patient is followed by director of category management, Dr. Chavis and underwent a nuclear med stress test yesterday November 25, 2024 that showed no ischemic changes and an ejection fraction 58%. Patient notes that his pain has persisted and presents to the emergency room today with these complaints. He denies any radiation of pain, associated shortness of breath, nausea/vomiting, or diaphoresis. Vital signs are stable. Workup performed in the emergency room including CBC that is normal, normal metabolic panel, normal coags, normal D-dimer, normal lipase. Initial troponin was also normal at 0.012 and then doubled to 0.024. Patient has a heart score of 5. Given the doubling of his troponin and his increased risk factors patient will be admitted in this setting for observation overnight to continue to trend troponins and rule out NSTEMI. Patient was given Ativan in the emergency room and noted that after receiving Ativan he felt better. He was also given aspirin 324 mg and a L of normal saline. patient was seen and examined at bedside. he is feeling fine deneis any chest pain, SOB, abd pain, N/V. cardiology team on borad. no furtehr managemnt needs and patient can follow as outpatient. Status at Discharge Overall status at discharge: patient is back to baseline Time Spent with Patient Time attestation: Total time spent providing and/or coordinating discharge services: Time spent: Greater than 30 minutes Exam Const: General: comfortable and no acute distress Other: Pleasant male patient sitting on the side of the stretcher at this time in no acute distress. He denies any current pain at this time. HENMT: Face/Nose/Sinus: Normal nares present Mouth: Yes moist mucous membranes Eyes: General: appearance normal, both eyes and all related structures Sclera: sclerae normal Pupils: Equal, round and reactive pupils present EOM: EOMs intact bilaterally Neck: Neck: supple and no JVD Lymphatic: lymphadenopathy not noted Chest: Other: Nontender Resp: Effort & Inspection: normal respiratory effort Auscultation: clear to auscultation bilaterally Cardio: Rate: regular rate Rhythm: regular rhythm Heart sounds: no gallops, no murmurs and no rubs GI: Auscultation: normal bowel sounds Skin: General skin exam: normal color, no rashes or lesions noted and no erythema Wounds: no wounds Neuro: Cranial nerves: Yes Equal, round and reactive pupils present Speech: normal speech Motor exam (neuro): 5/5 motor strength present throughout and Normal motor muscle tone present throughout Sensory Exam: normal sensation Extrem: Other: Freely and equally moves all extremities well without deficit. Psych: Mental Status: mental status grossly normal Affect: Anxious affect present DS: Data Data Completed and Pending Labs on day of discharge: Labs from last 24 hours 11/27/24 11/27/24 11/27/24 11:29 08:45 06:54 WBC RBC Hgb Hct MCV MCH MCHC RDW Plt Count MPV Immature Gran % (Auto) Neut % (Auto) Lymph % (Auto) [place] % (Auto) Eos % (Auto) Baso % (Auto) Lymph # (Auto) [place] # (Auto) Eos # (Auto) Baso # (Auto) Abs Immat Gran (auto) Absolute Neuts (auto) Absolute Nucleated RBC Nucleated RBC % PT INR APTT D-Dimer Sodium Potassium Chloride Carbon Dioxide Anion Gap BUN Creatinine Estim Creat Clear Calc Estimated GFR Glucose POC Capillary Glucose 120 H 126 H Hemoglobin A1c Calcium Magnesium Total Bilirubin AST ALT Alkaline Phosphatase Troponin I 0.020 Total Protein Albumin Lipase TSH (Reflex) 11/27/24 11/26/24 11/26/24 03:45 22:57 20:59 WBC 6.1 RBC 4.93 Hgb 14.1 Hct 42.1 MCV 85.4 MCH 28.6 MCHC 33.5 RDW 12.1 Plt Count 190 MPV 10.2 Immature Gran % (Auto) 0.2 Neut % (Auto) 61.4 Lymph % (Auto) 26.7 [place] % (Auto) 9.1 H Eos % (Auto) 1.8 Baso % (Auto) 0.8 Lymph # (Auto) 1.62 [place] # (Auto) 0.6 Eos # (Auto) 0.1 Baso # (Auto) 0.1 Abs Immat Gran (auto) 0.01 Absolute Neuts (auto) 3.7 Absolute Nucleated RBC 0.000 Nucleated RBC % 0.0 PT 15.2 H INR 1.2 APTT 35.8 D-Dimer Sodium 136 L Potassium 4.0 Chloride 106 Carbon Dioxide 22 Anion Gap 8 BUN 14 Creatinine 0.72 Estim Creat Clear Calc 84 Estimated GFR > 60 Glucose 114 H POC Capillary Glucose 128 H Hemoglobin A1c Calcium 9.2 Magnesium 2.0 Total Bilirubin 0.7 AST 42 ALT 57 H Alkaline Phosphatase 74 Troponin I 0.040 H* D Total Protein 6.3 Albumin 3.9 Lipase TSH (Reflex) 1.840 11/26/24 11/26/24 11/26/24 19:52 17:09 17:08 WBC 9.4 RBC 5.55 Hgb 16.1 Hct 47.5 MCV 85.6 MCH 29.0 MCHC 33.9 RDW 12.2 Plt Count 277 MPV 10.2 Immature Gran % (Auto) 0.2 Neut % (Auto) 61.2 Lymph % (Auto) 26.0 [place] % (Auto) 10.2 H Eos % (Auto) 2.0 Baso % (Auto) 0.4 Lymph # (Auto) 2.44 [place] # (Auto) 1.0 H Eos # (Auto) 0.2 Baso # (Auto) 0.0 Abs Immat Gran (auto) 0.02 Absolute Neuts (auto) 5.7 Absolute Nucleated RBC 0.000 Nucleated RBC % 0.0 PT 14.3 INR 1.1 APTT 28.3 D-Dimer 0.38 Sodium 134 L Potassium 4.2 Chloride 100 Carbon Dioxide 20 L Anion Gap 14 H BUN 18 Creatinine 0.98 Estim Creat Clear Calc 63 Estimated GFR > 60 Glucose 171 H POC Capillary Glucose Hemoglobin A1c 6.8 H Calcium 10.0 Magnesium Total Bilirubin 0.8 AST 58 ALT 71 H Alkaline Phosphatase 98 Troponin I 0.024 D < 0.012 Total Protein 7.9 Albumin 4.8 Lipase 118 TSH (Reflex) Discharge Plan Discharge Attending physician on discharge: Palak Del Valle Consulting providers: Palak Del Valle; Drake Chavis Discharging Clinician: Palak Del Valle Anticipated Discharge Date/Time: 11/27/24 12:39 Patient Disposition: Home Activity: as tolerated Diet: heart healthy Patient Instructions: Antibiotic Form, Chest Pain (GEN) Patient Language: Ken[place] Stand Alone Forms: General Discharge Information Follow-up/Referrals: Rodney Patel MD [Primary Care Provider, Family Practice] - 1 Week Drake Chavis DO [Physician, Cardiology] - Keep Reg. Scheduled Appt. Discharge Medications: New bisoprolol fumarate 5 mg tablet 5 mg PO DAILY Qty: 30 0RF Continued hydrocodone-acetaminophen 5-325 mg tablet 1 tablet PO BID PRN (Reason: severe pain (scale score 7-10)) Qty: 14 0RF sertraline 100 mg tablet 100 mg PO DAILY Qty: 30 3RF coenzyme Q10 [CoQ-10] 100 mg capsule 200 mg PO DAILY aspirin 81 mg tablet,delayed release (DR/EC) 81 mg PO DAILY omega 2-xpo-gre-fish oil [Fish Oil] 300-1,000 mg capsule 1 cap PO BID ferrous sulfate [Iron (ferrous sulfate)] 325 mg (65 mg iron) Tablet 325 mg PO EVERY OTHER DAY insulin lispro [Humalog KwikPen Insulin] 100 unit/mL insulin pen 1 sliding scale dose subcut Q8H PRN (Reason: pain (scale score 7-10)) Rx Instructions: max 30u of insulin lispro/day metoprolol succinate 100 mg tablet extended release 24 hr 100 mg PO DAILY Qty: 90 3RF Jardiance 25 mg tablet 25 mg PO DAILY Qty: 90 3RF atorvastatin 80 mg tablet 80 mg PO QHS Qty: 90 2RF metformin 1,000 mg tablet 1,000 mg PO BID Qty: 180 4RF gabapentin 300 mg capsule 300 mg PO BID Qty: 180 1RF lisinopril 20 mg tablet 20 mg PO DAILY Qty: 90 2RF insulin glargine [Lantus Solostar U-100 Insulin] 100 unit/mL (3 mL) insulin pen See Rx Instructions .ROUTE .COMPLEX Qty: 15 2RF Dose Instruction: INJECT 12 UNITS SUBCUTANEOUSLY IN THE EVENING Rx Instructions: INJECT 12 UNITS SUBCUTANEOUSLY IN THE EVENING Date of admission: 11/26/24 20:33 Primary Care Provider: Rodney Patel Admitting Provider: Rusty Saez Attending physician on admission: Rusty Saez Condition: Stable Quality VTE Prophylaxis VTE prophylaxis: pharmacologic ordered
== END 2024-11-27 13:35 | disposition home or self-care (01) ==
LOC: ANHED 20:32 → ANHIMU 23:09 → ANH3MEDSUR 11-30 06:46 → ANHIMU 11-30 06:46
PROVIDERS: Nurse Practitioner Adult Health; Student in an Organized Health Care Education/Training Program; Admitting Provider Family Medicine; Emergency Provider Physician Assistant; PCP Family Medicine; Visit Provider Internal Medicine
DX: R07.9 Chest pain, unspecified (principal); I44.7 Left bundle-branch block, unspecified; E11.9 Type 2 diabetes mellitus without complications; I11.9 Hypertensive heart disease without heart failure; I25.10 Atherosclerotic heart disease of native coronary artery without angina pectoris; Z95.1 Presence of aortocoronary bypass graft; I73.9 Peripheral vascular disease, unspecified; E78.5 Hyperlipidemia, unspecified; I25.2 Old myocardial infarction; Z87.891 Personal history of nicotine dependence; Z79.4 Long term (current) use of insulin; F41.9 Anxiety disorder, unspecified
CPT/HCPCS: 36415; 71046; 80053; 82948; 83036; 83690; 83735; 84443; 84484; 85025; 85380; 85610; 85730; 93005; 96361; 96372; 96374; 96375; 99285; A9270; G0378; J1650; J3360; J7030

== ENCOUNTER 2024-11-30 07:17 | Outpatient (CLI) | payer MEDICARE, SELFPAY ==
--- OUTSIDE RECORDS SUMMARY | 2024-11-30 07:26 | XMS_ITS | Clinical Summary ---
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 Gender Identity Not on file Sexual Orientation Not on file Last Filed Vital Signs Vital Sign Reading Time Taken Comments Blood Pressure 152/77 04/12/2020 10:32 PM EMOTIONAL DISABILITIES TEACHER Pulse 90 04/12/2020 10:32 PM EMOTIONAL DISABILITIES TEACHER Temperature 36.8 C (98.3 F) 04/12/2020 10:32 PM EMOTIONAL DISABILITIES TEACHER Respiratory Rate 10 04/12/2020 10:32 PM EMOTIONAL DISABILITIES TEACHER Oxygen Saturation 100% 04/12/2020 10:32 PM EMOTIONAL DISABILITIES TEACHER Inhaled Oxygen Concentration - - Weight 91.9 kg (202 lb 9.6 oz) 04/12/2020 10:32 PM EMOTIONAL DISABILITIES TEACHER Height 172.7 cm (5' 8) 04/12/2020 10:32 PM EMOTIONAL DISABILITIES TEACHER Body Mass Index 30.81 04/12/2020 10:32 PM EMOTIONAL DISABILITIES TEACHER Plan of Treatment Health Maintenance Due Date [...] this topic Insurance [employer] Care Teams Printed Circuit Boards Plasma Etcher Relationship Specialty Start Date End Date Yaakov Lee DO PCP - General FAMILY PRACTICE 03/04/19
[2024-11-30 08:02] LABS: Hematocrit 44.4 % (42.0-52.0); Hemoglobin 15.0 g/dL (14.0-18.0); Immature Granulocyte Percent A 0.4 % (0-0.5); Lymphocytes Absolute Auto 1.18 K/mm3 (0.9-3.2); Mean Corpuscular HGB Conc 33.8 g/dl (32-36); Mean Corpuscular Hemoglobin 28.6 pg (26-34); Mean Corpuscular Volume 84.7 fl (80-100); Nucleated Red Blood Cells Absolute Auto 0.000 K/mm3 (0.0-0.012); Nucleated Red Blood Cells Perc 0.0 % (0.0-0.2); Platelet Count Result 250 k/mm3 (150-375); Red Blood Count 5.24 M/mm3 (4.6-6.20); White Blood Count 10.4 K/mm3 (4.5-10.0)
[2024-11-30 08:17] LABS: Hemoglobin A1C 6.5 % (<5.7)
[2024-11-30 08:28] LABS: Alanine Aminotransferase 81 U/L (6-50); Albumin Level 4.4 g/dL (3.5-5.1); Alkaline Phosphatase 97 U/L (38-126); Anion Gap 9 mmol/L (4-12); Aspartate Amino Transferase 65 U/L (17-59); Bilirubin,Total 0.6 mg/dL (0.2-1.3); Blood Urea Nitrogen 15 mg/dL (9-20); Calcium 9.5 mg/dL (8.4-10.2); Carbon Dioxide 21 mmol/L (22-30); Chloride 103 mmol/L (98-107); Estimated Glomerular Filt Rate > 60; Glucose 149 mg/dL (65-110); Potassium 3.8 mmol/L (3.4-5.0); Sodium 133 mmol/L (137-145); Total Protein 6.8 g/dL (6.3-8.2)
== END 2024-11-30 07:18 | disposition home or self-care (01) ==
PROVIDERS: PCP Family Medicine; Visit Provider Physician Assistant
DX: I11.9 Hypertensive heart disease without heart failure (principal); E11.9 Type 2 diabetes mellitus without complications; Z79.4 Long term (current) use of insulin; D72.829 Elevated white blood cell count, unspecified
CPT/HCPCS: 36415; 80053; 83036; 85025

== ENCOUNTER 2024-12-04 06:44 | Outpatient (CLI) | payer MEDICARE, SELFPAY ==
--- OUTSIDE RECORDS SUMMARY | 2024-12-04 06:47 | XMS_ITS | Clinical Summary ---
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 Gender Identity Not on file Sexual Orientation Not on file Last Filed Vital Signs Vital Sign Reading Time Taken Comments Blood Pressure 152/77 04/12/2020 10:32 PM ASSESSMENT NURSE Pulse 90 04/12/2020 10:32 PM ASSESSMENT NURSE Temperature 36.8 C (98.3 F) 04/12/2020 10:32 PM ASSESSMENT NURSE Respiratory Rate 10 04/12/2020 10:32 PM ASSESSMENT NURSE Oxygen Saturation 100% 04/12/2020 10:32 PM ASSESSMENT NURSE Inhaled Oxygen Concentration - - Weight 91.9 kg (202 lb 9.6 oz) 04/12/2020 10:32 PM ASSESSMENT NURSE Height 172.7 cm (5' 8) 04/12/2020 10:32 PM ASSESSMENT NURSE Body Mass Index 30.81 04/12/2020 10:32 PM ASSESSMENT NURSE Plan of Treatment Health Maintenance Due Date [...] this topic Insurance [employer] Care Teams Lab Support Service Tech Relationship Specialty Start Date End Date Yaakov Lee DO PCP - General FAMILY PRACTICE 03/04/19
[2024-12-04 07:38] LABS: Hematocrit 45.3 % (42.0-52.0); Hemoglobin 15.0 g/dL (14.0-18.0); Immature Granulocyte Percent A 0.3 % (0-0.5); Lymphocytes Absolute Auto 1.09 K/mm3 (0.9-3.2); Mean Corpuscular HGB Conc 33.1 g/dl (32-36); Mean Corpuscular Hemoglobin 28.1 pg (26-34); Mean Corpuscular Volume 85.0 fl (80-100); Nucleated Red Blood Cells Absolute Auto 0.000 K/mm3 (0.0-0.012); Nucleated Red Blood Cells Perc 0.0 % (0.0-0.2); Platelet Count Result 225 k/mm3 (150-375); Red Blood Count 5.33 M/mm3 (4.6-6.20); White Blood Count 6.3 K/mm3 (4.5-10.0)
[2024-12-04 07:57] LABS: Alanine Aminotransferase 89 U/L (6-50); Albumin Level 4.4 g/dL (3.5-5.1); Alkaline Phosphatase 88 U/L (38-126); Anion Gap 8 mmol/L (4-12); Aspartate Amino Transferase 60 U/L (17-59); Bilirubin,Total 0.8 mg/dL (0.2-1.3); Blood Urea Nitrogen 10 mg/dL (9-20); Calcium 9.6 mg/dL (8.4-10.2); Carbon Dioxide 25 mmol/L (22-30); Chloride 100 mmol/L (98-107); Estimated Glomerular Filt Rate > 60; Glucose 150 mg/dL (65-110); Potassium 4.4 mmol/L (3.4-5.0); Sodium 133 mmol/L (137-145); Total Protein 6.9 g/dL (6.3-8.2)
== END 2024-12-04 06:45 | disposition home or self-care (01) ==
PROVIDERS: PCP Family Medicine; Visit Provider Physician Assistant Medical
DX: R79.89 Other specified abnormal findings of blood chemistry (principal); D72.829 Elevated white blood cell count, unspecified; E78.00 Pure hypercholesterolemia, unspecified
CPT/HCPCS: 36415; 80053; 85025

== ENCOUNTER 2024-12-10 16:39 | Emergency (ER) | payer MEDICARE, SELFPAY ==
--- NOTE | ~2024-12-10 | XR_ITS ---
EXAMINATION: XR chest 2V 12/10/2024 17:16 INDICATION: Chest pain PROCEDURE: 2 view chest COMPARISON: 11/26/2024 FINDINGS: The lungs are clear. The cardiomediastinal silhouette is within normal limits. Status post median sternotomy for CABG. There are no pleural effusions. There is no pneumothorax suspected. IMPRESSION: 1: NO ACUTE CARDIOPULMONARY DISEASE. Reviewed, dictated and finalized at location O.
--- NOTE | 2024-12-10 16:41 | ECG_ITS ---
Test Date: 2024-12-10 17:05:55 Measurements Intervals [place] Rate: 60 P: 102 FL: 181 QRS: -36 QRSD: 157 T: 109 QT: 432 QTc: 434 Interpretive Statements SINUS RHYTHM LEFT AXIS DEVIATION [QRS AXIS < -30] LEFT BUNDLE BRANCH BLOCK [120+ ms QRS DURATION, 80+ ms Q/S IN V1/V2, 85+ ms R IN I/aVL/V5/V6] Compared to ECG 11/26/2024 19:54:26 No significant changes Electronically Signed On 12-11-2024 12:15:51 CDT by Alf Alonso M.D.
--- OUTSIDE RECORDS SUMMARY | 2024-12-10 16:41 | XMS_ITS | Clinical Summary ---
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 Gender Identity Not on file Sexual Orientation Not on file Last Filed Vital Signs Vital Sign Reading Time Taken Comments Blood Pressure 152/77 04/12/2020 10:32 PM BEHAVIORAL HEALTH CONSULTANT Pulse 90 04/12/2020 10:32 PM BEHAVIORAL HEALTH CONSULTANT Temperature 36.8 C (98.3 F) 04/12/2020 10:32 PM BEHAVIORAL HEALTH CONSULTANT Respiratory Rate 10 04/12/2020 10:32 PM BEHAVIORAL HEALTH CONSULTANT Oxygen Saturation 100% 04/12/2020 10:32 PM BEHAVIORAL HEALTH CONSULTANT Inhaled Oxygen Concentration - - Weight 91.9 kg (202 lb 9.6 oz) 04/12/2020 10:32 PM BEHAVIORAL HEALTH CONSULTANT Height 172.7 cm (5' 8) 04/12/2020 10:32 PM BEHAVIORAL HEALTH CONSULTANT Body Mass Index 30.81 04/12/2020 10:32 PM BEHAVIORAL HEALTH CONSULTANT Plan of Treatment Health Maintenance Due Date Last Done Comments Colorectal Cancer Screening Colonoscopy (10 Years) 1958 Hepatitis C 1976 Zoster Vaccines (1 of 2) 2008 Pneumococcal Vaccine: 50+ Ye ars (2 of 2 - PPSV23) 11/01/2017 11/01/2016 COVID-19 Vaccine (1 - 2023-2 5 season) 2024 DTaP, Tdap and Td Vaccines ( 2 [...] this topic Insurance [employer] Care Teams Heel Seat Trimmer Relationship Specialty Start Date End Date Yaakov Lee DO PCP - General FAMILY PRACTICE 03/04/19
[2024-12-10 16:52] VITALS: BP 183/65; PULSE 55; RESP 18; TEMP 36.5; O2SAT 100
[2024-12-10 17:07] LABS: Hematocrit 48.8 % (42.0-52.0); Hemoglobin 16.2 g/dL (14.0-18.0); Immature Granulocyte Percent A 0.4 % (0-0.5); Lymphocytes Absolute Auto 2.16 K/mm3 (0.9-3.2); Mean Corpuscular HGB Conc 33.2 g/dl (32-36); Mean Corpuscular Hemoglobin 28.6 pg (26-34); Mean Corpuscular Volume 86.1 fl (80-100); Nucleated Red Blood Cells Absolute Auto 0.000 K/mm3 (0.0-0.012); Nucleated Red Blood Cells Perc 0.0 % (0.0-0.2); Platelet Count Result 256 k/mm3 (150-375); Red Blood Count 5.67 M/mm3 (4.6-6.20); White Blood Count 7.7 K/mm3 (4.5-10.0)
[2024-12-10 17:20] LABS: INR 1.0; Prothrombin Time 13.4 Seconds (11.1-14.7)
[2024-12-10 17:21] LABS: Partial Thromboplastin Time 28.2 Seconds (22.3-36.8)
[2024-12-10 17:24] LABS: Alanine Aminotransferase 104 U/L (6-50); Albumin Level 4.9 g/dL (3.5-5.1); Alkaline Phosphatase 98 U/L (38-126); Anion Gap 14 mmol/L (4-12); Aspartate Amino Transferase 66 U/L (17-59); Bilirubin,Total 0.5 mg/dL (0.2-1.3); Blood Urea Nitrogen 13 mg/dL (9-20); Calcium 9.8 mg/dL (8.4-10.2); Carbon Dioxide 22 mmol/L (22-30); Chloride 99 mmol/L (98-107); Estimated CRCL calculation 78 ml/min; Estimated Glomerular Filt Rate > 60; Glucose 126 mg/dL (65-110); Lipase 188 U/L (23-300); Potassium 4.0 mmol/L (3.4-5.0); Sodium 135 mmol/L (137-145); Total Protein 8.2 g/dL (6.3-8.2)
[2024-12-10 17:32] VITALS: PULSE 63
[2024-12-10 17:32] LABS: Troponin I < 0.012 ng/mL (0.000-0.034)
--- NOTE | 2024-12-10 17:55 | ED_ITS ---
HPI - Chest Pain General Chief Complaint: Chest Pain Stated Complaint: CP, HTN Time Seen by Provider: 12/10/24 17:03 History of Present Illness HPI narrative: Patient is a 64-year-old male who presents to the ER with concerns of chest pressure, fatigue, gassiness, elevated blood pressure readings, lower back pain, urinary symptoms, mild abdominal pain. He reports he was here recently and evaluated for the same symptoms. Patient reports his doctor just increased his dose of sertraline. He reports the most concerning symptom is the fatigue he is experiencing. Patient reports his primary care provider recently prescribed hydroxyzine and he took 2 of them yesterday. He is concerned because he reports he has a significant cardiac history and takes metoprolol. Patient also endorses a history of diabetes, high blood pressure, and anxiety. He denies any upper back pain, recent fevers, or sweats/chills. Related Data Home Medications ?Medication ?Instructions ?Recorded ?Confirmed ?Last Taken ?Type aspirin 81 mg tablet,delayed 81 mg PO DAILY 06/19/22 0 12/08/24 08/19/24 History release coenzyme Q10 100 mg capsule 200 mg PO DAILY 06/19/22 0 12/08/24 08/19/24 History (CoQ-10) omega 8-vlu-smu-fish oil 300 1 cap PO BID 06/19/2206/0208/19/24 History mg-1,000 mg capsule (Fish Oil) ferrous sulfate 325 mg (65 mg 325 mg PO EVERY OTHER DA Y 07/23/23 12/08/24 08/19/24 History iron) tablet (Iron (ferrous sulfate)) insulin lispro 100 unit/mL 1 sliding scale dose subcut Q8H 11/26/24 12/08/24 Unknown History subcutaneous pen (Humalog KwikPen PRN pain (scale scor e 7-10) (U-100) Insulin) Allergies Allergy/AdvReac Type Severity Reaction Status Date / Time hydrocodone (From [place]) AdvReac Mild hallucinati Verified 12/08/24 08:24 ons Review of Systems 2 Review of Systems: All systems reviewed & are unremarkable except as noted in HPI and below PMFSH Past Medical History Medical History Hyperlipidemia [place] (myocardial infarction) CAD (coronary artery disease) Hypertension with heart disease Diabetes mellitus Surgical History Surgical History History of carpal tunnel release History of coronary artery stent placement S/P CABG (coronary artery bypass graft) Family History Family History Father Heart disease Hypertension Sibling Diabetes mellitus Unknown High cholesterol Arthritis Social History Social History Smoking packs per day: 0 Smoking cigarettes per day: 0.0 Years smoked: 20 Smoking pack-years: 0.00 Smoking status: Former smoker Second hand tobacco smoke exposure: No Additional smoking assessment comments: quit 20 years Alcohol intake: never Alcohol use details: very rare Substance use: current Substance use type: marijuana Other substance usage details: daily - some smoking / some edibles Last use: as needed for pain Do You Feel Safe in your Home?: Yes Lack of Transportation: No Lack of Food: Never True Current Housing: I Have Housing Concerned About Future Housing: No Difficulty Paying Gas/Electric Bills: Decline to Answer Difficulty Paying for Meds: YES Currently Unemployed: No Education: High School Diploma/GED Difficulty w/ Childcare or Family Care: No Living arrangements: alone Occupation/Education: occupation Gender identity (if verbalized by the patient): Male 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 HEAD: Normocephalic, atraumatic. NECK: Supple. No adenopathy, no masses. RESPIRATORY: Airway patent, respirations nonlabored. Clear to auscultation bilaterally, no rales, rhonchi, wheezing. CARDIOVASCULAR: Regular rate and rhythm without murmurs, rubs, or gallops. Peripheral pulses 2+ and equal bilaterally. ABDOMINAL: Soft, nontender, nondistended, no hepatosplenomegaly. Normoactive BS. MUSCULOSKELETAL: Moves all extremities. Strength/ROM intact without gross deformities. SKIN: Warm, dry, normal color. No rashes. NEURO: A&O X3. Speech clear. Cranial nerves II-XII intact. No ataxic movements. PSYCHIATRIC: Appropriate mood and affect. Normal interaction. Course Vital Signs Vital signs: Vital Signs Temperature 36.5 C 12/10/24 16:52 Pulse Rate 55 L 12/10/24 16:52 Respiratory Rate 18 12/10/24 16:52 Blood Pressure 183/65 H 12/10/24 16:52 Pulse Oximetry 100 12/10/24 16:52 Temperature 36.5 C 12/10/24 16:52 Pulse Rate 63 12/10/24 17:32 Respiratory Rate 18 12/10/24 16:52 Blood Pressure 183/65 H 12/10/24 16:52 Pulse Oximetry 100 12/10/24 16:52 Oxygen Delivery Room Air 12/10/24 17:29 MDM - Chest Pain MDM Narrative Medical decision making narrative: Patient is a 64-year-old male who presents to the ER with concerns of chest pressure, fatigue, gassiness, elevated blood pressure readings, lower back pain, urinary symptoms, mild abdominal pain. He reports he was here recently and evaluated for the same symptoms. Patient reports his doctor just increased his dose of sertraline. He reports the most concerning symptom is the fatigue he is experiencing. Patient reports his primary care provider recently prescribed hydroxyzine and he took 2 of them yesterday. He is concerned because he reports he has a significant cardiac history and takes metoprolol. Patient also endorses a history of diabetes, high blood pressure, and anxiety. He denies any upper back pain, recent fevers, or sweats/chills. Labs Ordered: CBC, CMP, troponin, UDS, TSH, UA, COVID/flu/RSV, D-dimer, proBNP, lipase Imaging Ordered: Chest x-ray Medications Ordered: None necessary Results: Patient's CBC indicates no acute abnormalities. His coags were negative for acute abnormalities. Patient's D-dimer was negative. His CMP indicates a sodium 135, anion gap of 14, glucose of 126, AST 66, ALT of 104. Two negative troponin levels. Patient's proBNP is 274. Patient's urinalysis indicates glucose of 3+. His UDS is positive for cannabinoids. Patient's respiratory swab was negative for influenza, RSV, and COVID. Diagnosis: Atypical chest pain, anxiety Patient Education/Shared MDM: Results of lab work and imaging shared with patient. Patient was advised to refrain from further hydroxyzine use to see if this helps improve his symptoms of fatigue and weakness. He was also advised to call his primary care provider as soon as possible to discuss side effects of sertraline and other options for anxiety. Patient strongly advised to maintain hydration status upon discharge. He will not be discharged home with any new prescriptions. Strict return precautions provided. Patient verbalized understanding and is in agreement with plan. Vital signs stable at time of discharge. All questions answered. Differential Diagnosis Differential diagnosis: Likely atypical chest pain, st elevation myocardial infarction, costochondritis and chest pain Lab Data Attestation: I reviewed the patient's lab results. 12/10/24 16:57 12/10/24 16:57 Labs: Lab Results 12/10/24 12/10/24 12/10/24 Range/Units 16:57 18:13 18:15 WBC 7.7 (4.5-10.0) K/mm3 RBC 5.67 (4.6-6.20) M/mm3 Hgb 16.2 (14.0-18.0) g/dL Hct 48.8 (42.0-52.0) % MCV 86.1 (80-100) fl MCH 28.6 (26-34) pg MCHC 33.2 (32-36) g/dl RDW 12.2 (11.5-14.5) % Plt Count 256 (150-375) k/mm3 MPV 10.2 (7.4-10.4) fl Immature Gran % (Auto) 0.4 (0-0.5) % Neut % (Auto) 56.3 (45.5-73.1) % Lymph % (Auto) 27.9 (18.3-44.2) % [place] % (Auto) 12.3 H (2.6-8.5) % Eos % (Auto) 2.5 (0-4.4) % Baso % (Auto) 0.6 (0.2-1.2) % Lymph # (Auto) 2.16 (0.9-3.2) K/mm3 [place] # (Auto) 1.0 H (0.1-0.6) K/mm3 Eos # (Auto) 0.2 (0-0.3) K/mm3 Baso # (Auto) 0.1 (0.0-0.1) K/mm3 Abs Immat Gran (auto) 0.03 (0.00-0.031) K/mm3 Absolute Neuts (auto) 4.4 (1.3-6.7) K/mm3 Absolute Nucleated RBC 0.000 (0.0-0.012) K/mm3 Nucleated RBC % 0.0 (0.0-0.2) % PT 13.4 (11.1-14.7) Seconds INR 1.0 APTT 28.2 (22.3-36.8) Seconds D-Dimer Cancelled 0.40 Sodium 135 L (137-145) mmol/L Potassium 4.0 (3.4-5.0) mmol/L Chloride 99 (98-107) mmol/L Carbon Dioxide 22 (22-30) mmol/L Anion Gap 14 H (4-12) mmol/L BUN 13 (9-20) mg/dL Creatinine 0.78 (0.7-1.3) mg/dL Estim Creat Clear Calc 78 ml/min Estimated GFR > 60 (59 - ) Glucose 126 H (65-110) mg/dL Calcium 9.8 (8.4-10.2) mg/dL Total Bilirubin 0.5 (0.2-1.3) mg/dL AST 66 H (17-59) U/L ALT 104 H (6-50) U/L Alkaline Phosphatase 98 (38-126) U/L Troponin I < 0.012 (0.000-0.034) ng/mL NT-Pro-B Natriuret Pep 274 H (19.9-100) pg/mL Total Protein 8.2 (6.3-8.2) g/dL Albumin 4.9 (3.5-5.1) g/dL Lipase 188 (23-300) U/L TSH (Reflex) (0.465-4.68) uIU/mL Urine Color Yellow (Yellow) Urine Appearance Cloudy H (Clear) Urine pH 7.0 (5.0-9.0) Ur Specific [place] 1.006 (1.001-1.035) Urine Protein Negative (Negative) mg/dL Urine Glucose (UA) 3+ H (Negative) mg/dL Urine Ketones Negative (Negative) mg/dL Ur Blood (Man) Negative (Negative) Urine Nitrate Negative (Negative) Urine Bilirubin Negative (Negative) Urine Urobilinogen 0.2 (<2.0) mg/dL Add Ur Microanalysis Reviewed Leukocyte Esterase Rfl Negative (Negative) MAKI/UL Urine RBC 0-2 (0-2) /hpf Urine WBC 0-5 (0-3) /hpf Ur Squamous Epith Cells None seen (Few) /hpf Urine Bacteria None seen /hpf Urine Casts 0-2 Urine Opiates Screen (Negative) Urine Methadone Screen (Negative) Ur Barbiturates Screen (Negative) Ur Phencyclidine Scrn (Negative) Ur Amphetamine Screen (Negative) U Benzodiazepines Scrn (Negative) Urine Cocaine Screen (Negative) U Cannabinoids Screen (Negative) Influenza A (RT-PCR) Negative (Negative) Influenza B (RT-PCR) Negative (Negative) RSV (RT-PCR) Negative (Negative) SARS-CoV-2 RNA (RT-PCR) Negative (Negative) 12/10/24 12/10/24 Range/Units 18:19 20:01 WBC (4.5-10.0) K/mm3 RBC (4.6-6.20) M/mm3 Hgb (14.0-18.0) g/dL Hct (42.0-52.0) % MCV (80-100) fl MCH (26-34) pg MCHC (32-36) g/dl RDW (11.5-14.5) % Plt Count (150-375) k/mm3 MPV (7.4-10.4) fl Immature Gran % (Auto) (0-0.5) % Neut % (Auto) (45.5-73.1) % Lymph % (Auto) (18.3-44.2) % [place] % (Auto) (2.6-8.5) % Eos % (Auto) (0-4.4) % Baso % (Auto) (0.2-1.2) % Lymph # (Auto) (0.9-3.2) K/mm3 [place] # (Auto) (0.1-0.6) K/mm3 Eos # (Auto) (0-0.3) K/mm3 Baso # (Auto) (0.0-0.1) K/mm3 Abs Immat Gran (auto) (0.00-0.031) K/mm3 Absolute Neuts (auto) (1.3-6.7) K/mm3 Absolute Nucleated RBC (0.0-0.012) K/mm3 Nucleated RBC % (0.0-0.2) % PT (11.1-14.7) Seconds INR APTT (22.3-36.8) Seconds D-Dimer Sodium (137-145) mmol/L Potassium (3.4-5.0) mmol/L Chloride (98-107) mmol/L Carbon Dioxide (22-30) mmol/L Anion Gap (4-12) mmol/L BUN (9-20) mg/dL Creatinine (0.7-1.3) mg/dL Estim Creat Clear Calc ml/min Estimated GFR (59 - ) Glucose (65-110) mg/dL Calcium (8.4-10.2) mg/dL Total Bilirubin (0.2-1.3) mg/dL AST (17-59) U/L ALT (6-50) U/L Alkaline Phosphatase (38-126) U/L Troponin I 0.012 (0.000-0.034) ng/mL NT-Pro-B Natriuret Pep (19.9-100) pg/mL Total Protein (6.3-8.2) g/dL Albumin (3.5-5.1) g/dL Lipase (23-300) U/L TSH (Reflex) 3.200 (0.465-4.68) uIU/mL Urine Color (Yellow) Urine Appearance (Clear) Urine pH (5.0-9.0) Ur Specific [place] (1.001-1.035) Urine Protein (Negative) mg/dL Urine Glucose (UA) (Negative) mg/dL Urine Ketones (Negative) mg/dL Ur Blood (Man) (Negative) Urine Nitrate (Negative) Urine Bilirubin (Negative) Urine Urobilinogen (<2.0) mg/dL Add Ur Microanalysis Leukocyte Esterase Rfl (Negative) MAKI/UL Urine RBC (0-2) /hpf Urine WBC (0-3) /hpf Ur Squamous Epith Cells (Few) /hpf Urine Bacteria /hpf Urine Casts Urine Opiates Screen Negative (Negative) Urine Methadone Screen Negative (Negative) Ur Barbiturates Screen Negative (Negative) Ur Phencyclidine Scrn Negative (Negative) Ur Amphetamine Screen Negative (Negative) U Benzodiazepines Scrn Negative (Negative) Urine Cocaine Screen Negative (Negative) U Cannabinoids Screen Positive A (Negative) Influenza A (RT-PCR) (Negative) Influenza B (RT-PCR) (Negative) RSV (RT-PCR) (Negative) SARS-CoV-2 RNA (RT-PCR) (Negative) Imaging Data Attestation: I personally reviewed and interpreted this imaging study as follows: Radiologist's impression: Impressions Chest X-Ray 12/10/24 17:30 IMPRESSION: 1: NO ACUTE CARDIOPULMONARY DISEASE. Discharge Plan Discharge Clinical Impression: Atypical chest pain, Anxiety, Fatigue Patient Disposition: Home Condition: Stable Instructions: Antibiotic Form, Noncardiac Chest Pain (ED) Additional Instructions: Please return to the ER with any worsening symptoms. Follow-up with primary care provider as soon as possible for further discussion about anxiety medication. He should refrain from using hydroxyzine until further discussion with your primary care provider. Take all other medications as prescribed, including regularly scheduled medications. Please refrain from using marijuana. Remember to drink lots of water. Patient Language: Nam[place] Prescriptions: No Action hydrocodone-acetaminophen 5-325 mg tablet 1 tablet PO BID PRN (Reason: severe pain (scale score 7-10)) Qty: 14 0RF sertraline 100 mg tablet 150 mg PO DAILY Qty: 45 3RF hydroxyzine HCl 25 mg tablet 50 mg PO BID PRN (Reason: anxiety) Qty: 60 1RF coenzyme Q10 [CoQ-10] 100 mg capsule 200 mg PO DAILY aspirin 81 mg tablet,delayed release (DR/EC) 81 mg PO DAILY omega 6-cjq-udc-fish oil [Fish Oil] 300-1,000 mg capsule 1 cap PO BID ferrous sulfate [Iron (ferrous sulfate)] 325 mg (65 mg iron) Tablet 325 mg PO EVERY OTHER DAY insulin lispro [Humalog KwikPen Insulin] 100 unit/mL insulin pen 1 sliding scale dose subcut Q8H PRN (Reason: pain (scale score 7-10)) Rx Instructions: max 30u of insulin lispro/day bisoprolol fumarate 5 mg tablet 5 mg PO DAILY Qty: 30 0RF metoprolol succinate 100 mg tablet extended release 24 hr 100 mg PO DAILY Qty: 90 3RF Jardiance 25 mg tablet 25 mg PO DAILY Qty: 90 3RF atorvastatin 80 mg tablet 80 mg PO QHS Qty: 90 2RF metformin 1,000 mg tablet 1,000 mg PO BID Qty: 180 4RF gabapentin 300 mg capsule 300 mg PO BID Qty: 180 1RF lisinopril 20 mg tablet 20 mg PO DAILY Qty: 90 2RF insulin glargine [Lantus Solostar U-100 Insulin] 100 unit/mL (3 mL) insulin pen See Rx Instructions .ROUTE .COMPLEX Qty: 15 2RF Dose Instruction: INJECT 12 UNITS SUBCUTANEOUSLY IN THE EVENING Rx Instructions: INJECT 12 UNITS SUBCUTANEOUSLY IN THE EVENING Follow-up/Referrals: Rodney Patel MD [Primary Care Provider, Family Practice] Stand Alone Forms: Work/School Release IP Time of Disposition: 20:51
[2024-12-10 18:53] LABS: NT Pro B Type Natriuretic Pept 274 pg/mL (19.9-100)
[2024-12-10 18:54] LABS: Add Urine Microscopic? YES; Appearance Urine Cloudy (Clear); Glucose Urine UA 3+ mg/dL (Negative); Leukocyte Esterase Ur Negative LEU/UL (Negative); Need Manual Microscopic Reviewed; Nitrate Urine Negative (Negative); Non Pathogenic Casts 0-2; Specific Grav Ur 1.006 (1.001-1.035)
[2024-12-10 19:12] LABS: Influenza A QL RT-PCR Negative (Negative); Influenza B QL RT-PCR Negative (Negative); RSV RNA, RT-PCR Negative (Negative); SARS-CoV-2 RNA PCR Negative (Negative)
[2024-12-10 19:26] LABS: Thyroid Stimulating Hormone Reflex 3.200 uIU/mL (0.465-4.68)
--- NOTE | 2024-12-10 19:42 | ECG_ITS ---
Test Date: 2024-12-10 19:51:17 Measurements Intervals [place] Rate: 69 P: 0 [place]: 0 QRS: -41 QRSD: 163 T: 121 QT: 433 QTc: 466 Interpretive Statements ATRIAL FIBRILLATION MARKED LEFT AXIS DEVIATION [QRS AXIS < -30] LEFT BUNDLE BRANCH BLOCK [120+ ms QRS DURATION, 80+ ms Q/S IN V1/V2, 85+ ms R IN I/aVL/V5/V6] Compared to ECG 12/10/2024 17:05:55 Sinus rhythm no longer present Electronically Signed On 12-11-2024 12:22:11 CDT by Alf Alonso M.D.
[2024-12-10 20:08] LABS: Cannabinoid Screen Urine Positive (Negative)
[2024-12-10 20:33] LABS: Troponin I 0.012 ng/mL (0.000-0.034)
[2024-12-10 20:58] VITALS: BP 125/61; PULSE 72; RESP 18; O2SAT 100
== END 2024-12-10 20:59 | disposition home or self-care (01) ==
PROVIDERS: Emergency Medicine; Emergency Provider Registered Nurse; PCP Family Medicine
DX: R07.89 Other chest pain (principal); F41.9 Anxiety disorder, unspecified; R53.83 Other fatigue; I11.9 Hypertensive heart disease without heart failure; I25.10 Atherosclerotic heart disease of native coronary artery without angina pectoris; I25.2 Old myocardial infarction; E78.5 Hyperlipidemia, unspecified; E11.9 Type 2 diabetes mellitus without complications; Z95.1 Presence of aortocoronary bypass graft; Z95.5 Presence of coronary angioplasty implant and graft; F12.90 Cannabis use, unspecified, uncomplicated; Z87.891 Personal history of nicotine dependence; Z20.822 Contact with and (suspected) exposure to COVID-19; Z79.899 Other long term (current) drug therapy
CPT/HCPCS: 36415; 71046; 80053; 80307; 81001; 83690; 83880; 84443; 84484; 85025; 85380; 85610; 85730; 87637; 93005; 99284

== ENCOUNTER 2024-12-31 13:06 | Outpatient (CLI) | payer MEDICARE, SELFPAY ==
[2024-12-31 13:53] LABS: Alanine Aminotransferase 95 U/L (6-50); Albumin Level 4.4 g/dL (3.5-5.1); Alkaline Phosphatase 110 U/L (38-126); Anion Gap 8 mmol/L (4-12); Aspartate Amino Transferase 71 U/L (17-59); Bilirubin,Total 0.6 mg/dL (0.2-1.3); Blood Urea Nitrogen 14 mg/dL (9-20); Calcium 9.2 mg/dL (8.4-10.2); Carbon Dioxide 23 mmol/L (22-30); Chloride 98 mmol/L (98-107); Estimated Glomerular Filt Rate > 60; Glucose 182 mg/dL (65-110); Potassium 4.3 mmol/L (3.4-5.0); Sodium 129 mmol/L (137-145); Total Protein 7.0 g/dL (6.3-8.2)
== END 2024-12-31 13:07 | disposition home or self-care (01) ==
LOC: ANHLAB 13:08
PROVIDERS: PCP Family Medicine; Visit Provider Physician Assistant
DX: R74.8 Abnormal levels of other serum enzymes (principal)
CPT/HCPCS: 36415; 80053

== ENCOUNTER 2025-01-07 08:32 | Outpatient (CLI) | payer MEDICARE, SELFPAY ==
--- OUTSIDE RECORDS SUMMARY | 2025-01-07 08:43 | XMS_ITS | Clinical Summary ---
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 Gender Identity Not on file Sexual Orientation Not on file Last Filed Vital Signs Vital Sign Reading Time Taken Comments Blood Pressure 152/77 04/12/2020 10:32 PM DATA PROCESSING SYSTEMS CONSULTANT Pulse 90 04/12/2020 10:32 PM DATA PROCESSING SYSTEMS CONSULTANT Temperature 36.8 C (98.3 F) 04/12/2020 10:32 PM DATA PROCESSING SYSTEMS CONSULTANT Respiratory Rate 10 04/12/2020 10:32 PM DATA PROCESSING SYSTEMS CONSULTANT Oxygen Saturation 100% 04/12/2020 10:32 PM DATA PROCESSING SYSTEMS CONSULTANT Inhaled Oxygen Concentration - - Weight 91.9 kg (202 lb 9.6 oz) 04/12/2020 10:32 PM DATA PROCESSING SYSTEMS CONSULTANT Height 172.7 cm (5' 8) 04/12/2020 10:32 PM DATA PROCESSING SYSTEMS CONSULTANT Body Mass Index 30.81 04/12/2020 10:32 PM DATA PROCESSING SYSTEMS CONSULTANT Plan of Treatment Health Maintenance Due [...] this topic Insurance [employer] Care Teams Supervisor Sulfuric Acid Plant Relationship Specialty Start Date End Date Yaakov Lee DO PCP - General FAMILY PRACTICE 03/04/19
[2025-01-07 09:18] LABS: Alanine Aminotransferase 86 U/L (6-50); Albumin Level 4.0 g/dL (3.5-5.1); Alkaline Phosphatase 78 U/L (38-126); Anion Gap 7 mmol/L (4-12); Aspartate Amino Transferase 54 U/L (17-59); Bilirubin,Total 0.4 mg/dL (0.2-1.3); Blood Urea Nitrogen 15 mg/dL (9-20); Calcium 9.0 mg/dL (8.4-10.2); Carbon Dioxide 23 mmol/L (22-30); Chloride 102 mmol/L (98-107); Estimated Glomerular Filt Rate > 60; Glucose 165 mg/dL (65-110); Potassium 4.3 mmol/L (3.4-5.0); Sodium 132 mmol/L (137-145); Total Protein 6.3 g/dL (6.3-8.2)
== END 2025-01-07 08:33 | disposition home or self-care (01) ==
LOC: ANHLAB 08:33
PROVIDERS: PCP Family Medicine; Visit Provider Physician Assistant
DX: E87.1 Hypo-osmolality and hyponatremia (principal); R79.89 Other specified abnormal findings of blood chemistry
CPT/HCPCS: 36415; 80053

== ENCOUNTER 2025-03-03 01:02 | Day surgery (SDC) | payer MEDICARE, SELFPAY ==
--- NOTE | 2025-02-17 12:45 | PC.NURSE ---
Pt noted to have been in hospital in the summer with chest pain and again was seen in ED with chest pain in Dec. Pt has not been seen in cardiology office since and will need to have follow up prior to anesthesia for this procedure. Pt called and he is fine with this - he is rescheduled to 03/03/25 pending clearance. He will call Dr. Skelton office to be cleared for procedure.
--- OUTSIDE RECORDS SUMMARY | 2025-03-03 01:05 | XMS_ITS | Clinical Summary ---
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 Gender Identity Not on file Sexual Orientation Not on file Last Filed Vital Signs Vital Sign Reading Time Taken Comments Blood Pressure 152/77 04/12/2020 10:32 PM BEHAVIORAL SCIENCE CHAIR Pulse 90 04/12/2020 10:32 PM BEHAVIORAL SCIENCE CHAIR Temperature 36.8 C (98.3 F) 04/12/2020 10:32 PM BEHAVIORAL SCIENCE CHAIR Respiratory Rate 10 04/12/2020 10:32 PM BEHAVIORAL SCIENCE CHAIR Oxygen Saturation 100% 04/12/2020 10:32 PM BEHAVIORAL SCIENCE CHAIR Inhaled Oxygen Concentration - - Weight 91.9 kg (202 lb 9.6 oz) 04/12/2020 10:32 PM BEHAVIORAL SCIENCE CHAIR Height 172.7 cm (5' 8) 04/12/2020 10:32 PM BEHAVIORAL SCIENCE CHAIR Body Mass Index 30.81 04/12/2020 10:32 PM BEHAVIORAL SCIENCE CHAIR Plan of Treatment Health Maintenance Due Date Last Done Comments Colorectal Cancer Screening Colonoscopy (10 Years) 1958 Hepatitis C 1976 Zoster Vaccines (1 of 2) 2008 Pneumococcal Vaccine: 50+ Ye ars (2 of 2 - PCV20 or PCV21) 11/01/2017 11/01/2016 COVID-19 Vaccine (1 - 2024-2 6 season) 2024 Influenza Adult (#1) 2025 01/12/2020 DTaP, Tdap and Td Vaccines ( 2 - Td or Tdap) 04/12/2030 04/12/2020 RSV Immunization or 60+ Years (1 - 1-dose 75+ series) 2033 Hepatitis A Vaccines Aged Out No long er eligible based on patient's age to complete [...] this topic Insurance [employer] Care Teams Vice President Client Services Relationship Specialty Start Date End Date Yaakov Lee DO PCP - General FAMILY PRACTICE 03/04/19
[2025-03-03 09:05] VITALS: BP 148/76; PULSE 74; RESP 20; TEMP 36; O2SAT 98
--- NOTE | 2025-03-03 09:12 | WPDANESEPPF ---
Anes - Initial Pre Proc Eval Procedure: Operation Date: 03/03/25 10:30 Proposed Procedures p Screening Colonoscopy - Terrance Gibbs MD Date/Time: 03/03/25 09:12 Surgeon: Terrance Gibbs MD Pre Op Diagnosis: Screening Patient Data Age: 64 Gender: M Height: Weight: 82.7 kg Last Vital Signs Temp 36.0 C L 03/03/25 09:05 Pulse 74 03/03/25 09:05 Resp 20 03/03/25 09:05 BP 148/76 H 03/03/25 09:05 Pulse Ox 98 03/03/25 09:05 O2 Del Method Room Air 03/03/25 09:05 Allergies Allergy/AdvReac Type Severity Reaction Status Date / Time hydrocodone (From [place]) AdvReac Mild hallucinati Verified 03/03/25 09:04 ons Home Medications ?Medication ?Instructions ?Recorded ?Confirmed ?Type aspirin 81 mg tablet,delayed 81 mg PO DAILY 06/19/22 02/24/25 History release coenzyme Q10 100 mg capsule 200 mg PO DAILY 06/19/22 02/24/25 History (CoQ-10) omega 6-lbs-fiy-fish oil 300 1 cap PO BID 06/19/22 02/24/25 History mg-1,000 mg capsule (Fish Oil) ferrous sulfate 325 mg (65 mg 325 mg PO EVERY OTHER DAY 07/23/23 02/24/25 History iron) tablet (Iron (ferrous sulfate)) metformin 1,000 mg tablet 1,000 mg PO BID #180 tabs 04/06/24 02/24/25 Rx lisinopril 20 mg tablet 20 mg PO DAILY #90 tabs 09/15/24 02/24/25 Rx Lantus Solostar U-100 Insulin 100 See Rx Instructions .Route 10/10/24 02/24/25 Rx unit/mL (3 mL) subcutaneous pen .COMPLEX #15 mL (insulin glargine) atorvastatin 80 mg tablet 80 mg PO QHS #90 tabs 12/28/24 02/24/25 Rx empagliflozin 25 mg tablet 25 mg PO DAILY #90 tabs 01/08/25 02/24/25 Rx (Jardiance) sertraline 100 mg tablet 100 mg PO DAILY #90 tabs 01/11/25 02/24/25 Rx hydroxyzine HCl 10 mg tablet 10 mg PO QID PRN anxiety 01/14/25 02/24/25 History gabapentin 300 mg capsule 300 mg PO BID #180 caps 01/18/25 02/24/25 Rx pen needle, diabetic 31 gauge x #100 ea 02/05/25 02/24/25 Rx 3/16 (1st Tier Unifine Pentips Plus) insulin lispro 100 unit/mL 1 sliding scale dose subcut 02/08/25 02/24/25 Rx subcutaneous pen (Humalog KwikPen USEASDIRECTD #15 mL (U-100) Insulin) metoprolol succinate 50 mg 50 mg PO DAILY #90 tabs 02/24/25 02/24/25 Rx tablet,extended release 24 hr Patient hx anesthesia problems: none Family hx anesthesia problems: none Results Review: All pre-operative results and documents have been reviewed as part of the pre-operative evaluation. [facility] Past Medical History Medical History Hyperlipidemia [place] (myocardial infarction) CAD (coronary artery disease) Hypertension with heart disease Diabetes mellitus Surgical History Surgical History History of carpal tunnel release History of coronary artery stent placement S/P CABG (coronary artery bypass graft) Family History Family History Father Heart disease Hypertension Sibling Diabetes mellitus Unknown High cholesterol Arthritis Social History Social History Smoking packs per day: 0 Smoking cigarettes per day: 0.0 Years smoked: 20 Smoking pack-years: 0.00 Smoking status: Former smoker Second hand tobacco smoke exposure: No Additional smoking assessment comments: quit 20 years Alcohol intake: never Alcohol use details: very rare Substance use: current Substance use type: marijuana Other substance usage details: daily - some smoking / some edibles Last use: as needed for pain Do You Feel Safe in your Home?: Yes Lack of Transportation: No Lack of Food: Never True Current Housing: I Have Housing Concerned About Future Housing: No Difficulty Paying Gas/Electric Bills: Decline to Answer Difficulty Paying for Meds: YES Currently Unemployed: No Education: High School Diploma/GED Difficulty w/ Childcare or Family Care: No Living arrangements: alone Occupation/Education: occupation Gender identity (if verbalized by the patient): Male 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 [employer] Sexual Orientation (if Verbalized by the Patient): Straight or Heterosexual Spiritual care concerns: No Anes - Eval Final PreProcedure Day of Procedure 03/03/25 09:12 Patient weight: overweight Heart: regular rate and rhythm Lungs: clear to auscultation Airway: Mallampati scale class II Neurological: alert and oriented Last oral intake: >/= 8 hours ASA classification: III Emergent: no Anesthetic plan: proceed Anesthesia type and monitoring: general GIVS and standard monitoring Results Review: All pre-operative results and documents have been reviewed as part of the pre-operative evaluation. Informed Consent: The patient's anesthetic plan and its attendant risks and benefits were discussed with the patient/family/POA. Questions were solicited and answers provided to the satisfaction of the patient/family/POA.
[2025-03-03] MEDS: LACTATED RINGERS 1,000 ML 150 ML IV CONT (09:28)
--- NOTE | 2025-03-03 09:34 | PM.HPGS ---
History of Present Illness History of Present Illness Consent: Risks, benefits, and alternatives have been discussed and questions answered. Patient agrees to proceed with procedure. Chief complaint: Screening Narrative: Alejandro Gupta III is a 64 year old male with colon polyp 6 years ago Review of Systems Review of Systems: All systems reviewed & are unremarkable except as noted in HPI and below PMFSH Past Medical History Medical History (Updated 03/03/25 @ 09:34 by Terrance Gibbs MD) Colon polyp Hyperlipidemia [place] (myocardial infarction) CAD (coronary artery disease) Hypertension with heart disease Diabetes mellitus Surgical History Surgical History History of carpal tunnel release History of coronary artery stent placement S/P CABG (coronary artery bypass graft) Family History Family History Father Heart disease Hypertension Sibling Diabetes mellitus Unknown High cholesterol Arthritis Social History Social History Smoking packs per day: 0 Smoking cigarettes per day: 0.0 Years smoked: 20 Smoking pack-years: 0.00 Smoking status: Former smoker Second hand tobacco smoke exposure: No Additional smoking assessment comments: quit 20 years Alcohol intake: never Alcohol use details: very rare Substance use: current Substance use type: marijuana Other substance usage details: daily - some smoking / some edibles Last use: as needed for pain Lack of Transportation: No Lack of Food: Never True Current Housing: I Have Housing Concerned About Future Housing: No Difficulty Paying Gas/Electric Bills: Decline to Answer Difficulty Paying for Meds: YES Currently Unemployed: No Education: High School Diploma/GED Difficulty w/ Childcare or Family Care: No Living arrangements: alone Occupation/Education: occupation Gender identity (if verbalized by the patient): Male 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 [employer] Sexual Orientation (if Verbalized by the Patient): Straight or Heterosexual Spiritual care concerns: No Meds Home Medications and Allergies Home Medications ?Medication ?Instructions ?Recorded ?Confirmed ?Type aspirin 81 mg tablet,delayed 81 mg PO DAILY 06/19/22 03/03/25 History release coenzyme Q10 100 mg capsule 200 mg PO DAILY 06/19/22 03/03/25 History (CoQ-10) omega 1-hfv-oaa-fish oil 300 1 cap PO BID 06/19/22 03/03/25 History mg-1,000 mg capsule (Fish Oil) ferrous sulfate 325 mg (65 mg 325 mg PO EVERY OTHER DAY 07/23/23 03/03/25 History iron) tablet (Iron (ferrous sulfate)) metformin 1,000 mg tablet 1,000 mg PO BID #180 tabs 04/06/24 03/03/25 Rx lisinopril 20 mg tablet 20 mg PO DAILY #90 tabs 09/15/24 03/03/25 Rx Lantus Solostar U-100 Insulin 100 See Rx Instructions .Route 10/10/24 03/03/25 Rx unit/mL (3 mL) subcutaneous pen .COMPLEX #15 mL (insulin glargine) atorvastatin 80 mg tablet 80 mg PO QHS #90 tabs 12/28/24 03/03/25 Rx empagliflozin 25 mg tablet 25 mg PO DAILY #90 tabs 01/08/25 03/03/25 Rx (Jardiance) sertraline 100 mg tablet 100 mg PO DAILY #90 tabs 01/11/25 03/03/25 Rx hydroxyzine HCl 10 mg tablet 10 mg PO QID PRN anxiety 01/14/25 02/24/25 History gabapentin 300 mg capsule 300 mg PO BID #180 caps 01/18/25 03/03/25 Rx pen needle, diabetic 31 gauge x #100 ea 02/05/25 02/24/25 Rx 3/16 (1st Tier Unifine Pentips Plus) insulin lispro 100 unit/mL 1 sliding scale dose subcut 02/08/25 03/03/25 Rx subcutaneous pen (Humalog KwikPen USEASDIRECTD #15 mL (U-100) Insulin) metoprolol succinate 50 mg 50 mg PO DAILY #90 tabs 02/24/25 03/03/25 Rx tablet,extended release 24 hr Allergies Allergy/AdvReac Type Severity Reaction Status Date / Time hydrocodone (From [place]) AdvReac Mild hallucinati Verified 03/03/25 09:04 ons Vital Signs Vital Signs - 24 hr 03/03/25 09:05 Temperature 96.8 F L Pulse Rate 74 Respiratory Rate 20 Blood Pressure 148/76 H Pulse Oximetry 98 Oxygen Delivery Room Air Exam Const: General: comfortable and no acute distress HENMT: Face/Nose/Sinus: Normal nares present Eyes: General: appearance normal, both eyes and all related structures Resp: Auscultation: clear to auscultation bilaterally Cardio: Rate: regular rate Rhythm: regular rhythm GI: Inspection: non-distended GI Palp: Yes Soft to palpation Skin: General skin exam: normal color Extrem: General: normal to inspection Psych: Mental Status: mental status grossly normal Assessment and Plan Assessment and plan (1) Colon polyp: Code(s): K63.5 - Polyp of colon Status: Acute Assessment and Plan: colonoscopy
--- NOTE | 2025-03-03 09:59 | S_PTH ---
PATIENT: Alejandro Gupta III LOC: [facility]#:[id number] AGE/SX: 64/M ROOM: RE03/03/[address]: Terrance Gibbs MD : 1960 BED: DIS: 03/03/2025 SPEC #: [id number] RECD: 03/03/25 10:41 STATUS: FINN RESarah #: [id number] SOWMYA: 03/03/25 09:[address]: Terrance Gibbs DEPT: [facility] Surgical RECD BY: Sofie Wren ENTERED: 03/03/25 10:41 SP TYPE: Surgical OTHR DR: Rodney Patel MD Tissues: A - Colon Polypectomy Procedures: Hematoxylin and Eosin Stain Gross and Microscopic Level 4
[2025-03-03 10:00] VITALS: BP 94/55; PULSE 67; RESP 14; O2SAT 97
[2025-03-03 10:10] VITALS: BP 102/58; PULSE 64; RESP 19; O2SAT 97
[2025-03-03 10:20] VITALS: BP 126/57; PULSE 66; RESP 20; O2SAT 99
== END 2025-03-03 10:32 | disposition home or self-care (01) ==
PROVIDERS: PCP Family Medicine; Referring Provider Physician Assistant; Visit Provider Internal Medicine Gastroenterology
PROC: 0DJD8ZZ Inspection of Lower Intestinal Tract, Via Natural or Artificial Opening Endoscopic (ICD-10-PCS; CPT 45378; principal; 2025-03-03 10:30)
DX: Z12.11 Encounter for screening for malignant neoplasm of colon (principal); D12.3 Benign neoplasm of transverse colon; K57.30 Diverticulosis of large intestine without perforation or abscess without bleeding; K64.8 Other hemorrhoids; E11.9 Type 2 diabetes mellitus without complications; Z87.891 Personal history of nicotine dependence
CPT/HCPCS: 45385; 82948; 88305; J2704; J7120

== ENCOUNTER 2025-03-10 07:35 | Outpatient (CLI) | payer MEDICARE, SELFPAY ==
--- OUTSIDE RECORDS SUMMARY | 2025-03-10 07:39 | XMS_ITS | Clinical Summary ---
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 Pulse 90 04/12/2020 10:32 PM [employer] AND 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 Temperature 36.8 C (98.3 F) 04/12/2020 10:32 PM [employer] AND 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 Respiratory Rate 10 04/12/2020 10:32 PM [employer]ING AND 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 Oxygen Saturation 100% 04/12/2020 10:32 PM [employer]ING AND 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 Inhaled Oxygen Concentration - - Weight 91.9 kg (202 lb 9.6 oz) 04/12/2020 10:32 PM [employer] 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
[2025-03-10 08:19] LABS: Hemoglobin A1C 6.9 % (<5.7)
[2025-03-10 08:32] LABS: Alanine Aminotransferase 65 U/L (6-50); Albumin Level 4.5 g/dL (3.5-5.1); Alkaline Phosphatase 101 U/L (38-126); Anion Gap 6 mmol/L (4-12); Aspartate Amino Transferase 53 U/L (17-59); Bilirubin,Total 0.6 mg/dL (0.2-1.3); Blood Urea Nitrogen 16 mg/dL (9-20); CRP < 0.5 mg/dL (<1.0); Calcium 9.6 mg/dL (8.4-10.2); Carbon Dioxide 28 mmol/L (22-30); Chloride 102 mmol/L (98-107); Estimated Glomerular Filt Rate > 60; Glucose 154 mg/dL (65-110); Potassium 4.8 mmol/L (3.4-5.0); Sodium 136 mmol/L (137-145); Total Protein 7.5 g/dL (6.3-8.2)
[2025-03-10 09:04] LABS: Prostate Specific Antigen 0.6 ng/mL (< OR = 4.0)
[2025-03-11 10:09] LABS: Anti-CCP Ab, IgG/IgA 9 units (0-19)
[2025-03-12 11:08] LABS: ANA by IFA Rfx Titer/Pattern Negative (.)
== END 2025-03-10 07:36 | disposition home or self-care (01) ==
LOC: ANHLAB 07:36
PROVIDERS: PCP Family Medicine; Visit Provider Physician Assistant
DX: E11.9 Type 2 diabetes mellitus without complications (principal); I11.9 Hypertensive heart disease without heart failure; I25.10 Atherosclerotic heart disease of native coronary artery without angina pectoris; I25.810 Atherosclerosis of coronary artery bypass graft(s) without angina pectoris; E78.5 Hyperlipidemia, unspecified; M25.50 Pain in unspecified joint; M35.3 Polymyalgia rheumatica; R63.4 Abnormal weight loss; R53.83 Other fatigue; R35.1 Nocturia; Z12.5 Encounter for screening for malignant neoplasm of prostate
CPT/HCPCS: 36415; 80053; 83036; 84153; 85652; 86038; 86140; 86200; 86430